=== PATIENT | male | born 1955 | race Caucasian/White ===

== ENCOUNTER → 2016-10-13 | Outpatient (CLI) | payer BC ==
[~2016-10-13] MED LIST: ACET-1256 PO; ASPI81TA21 PO; CLON0.5T3 PO; DIPH-437 PO; FURO40TA3 PO; INSU70IN2 SC; LISI-729 PO; MCRK20 PO; METO1TAB71 PO; PRAV20TA PO; PXL20 PO; WARF-246 PO
[2016-10-13 10:15] LABS: HEMATOCRIT 45.6 % (42-52); MEAN CELL VOLUME 87.7 fL (80-100); MEAN CORPUSCULAR HEMOGLOBIN 30.2 pg (25-34); MEAN CORPUSCULAR HGB CONC 34.4 g/dl (32-36); MEAN PLATELET VOLUME 12.4 fL (7.4-10.4); PLATELET COUNT 110 K/uL (130-400); WHITE BLOOD COUNT 6.35 K/uL (4.8-10.8)
[2016-10-13 10:16] LABS: ALT/SGPT 25 U/L (12-78); BLOOD UREA NITROGEN 15 mg/dl (7-18); BUN/CREATININE RATIO 13.6 (10-20); CALCIUM 9.2 mg/dl (8.5-10.1); CARBON DIOXIDE 30 mmol/L (21-32); CHLORIDE 104 mmol/L (98-107); CHOLESTEROL 91 mg/dl (0-200); GLUCOSE 101 mg/dl (70-99); POTASSIUM 4.2 mmol/L (3.5-5.1); SODIUM 141 mmol/L (136-145); TRIGLYCERIDES 151 mg/dl (0-150); VERY LOW DENSITY LIPOPROT CALC 30 mg/dl
[2016-10-13 10:18] LABS: ALKALINE PHOSPHATASE 135 U/L (45-117); AST/SGOT 22 U/L (15-37); CHOLESTEROL/HDL RATIO 2.3; HDL CHOLESTEROL 39 mg/dl; LDL CHOLESTEROL CALCULATED 22 mg/dl
[2016-10-13 10:23] LABS: BASO % 0.2 %; BASO ABS # 0.01 K/uL (0-0.2); COMPLETE YES; EOS % 3.3 %; IG% 0.2 %; LARGE PLATELETS 1+; LYMPH % 30.2 %; LYMPH ABS # 1.92 K/uL (1.2-3.4); MONO % 13.4 %; NEUT % 52.7 %
[2016-10-13 10:27] LABS: ESTIMATED AVERAGE GLUCOSE 160 mg/dl; HA1C FLAG Normal (Normal)
== END | disposition home or self-care (01) ==
LOC: C.LAB1850 08:38
PROVIDERS: ATTEND Internal Medicine
DX: E11.9 Type 2 diabetes mellitus without complications (principal); I10 Essential (primary) hypertension; I25.5 Ischemic cardiomyopathy; I50.22 Chronic systolic (congestive) heart failure; I25.119 Atherosclerotic heart disease of native coronary artery with unspecified angina pectoris

== ENCOUNTER → 2016-10-23 | Outpatient (CLI) | payer BC ==
--- NOTE | 2016-10-23 16:31 | DIAGNOSTIC IMAGING REPORT ---
CHEST 2 VIEWS ROUTINE CLINICAL HISTORY: I25.5 I20.9 I25.10 I50.23 ANGINA. COMPARISON STUDY: 01/21/2016 FINDINGS: The heart is enlarged. There is a right subclavian pacer/defibrillator present. There is mild pulmonary venous hypertension. There is no lobar consolidation. There are no pleural effusions.[ IMPRESSION: Cardiomegaly and mild pulmonary venous hypertension. No evidence of focal pulmonary consolidation Electronically signed by: Esau Robles M.D. 10/23/2016 4:30 PM Dictated Date/Time: 10/23/2016 4:29 PM
[2016-10-23 18:09] LABS: BLOOD UREA NITROGEN 15 mg/dl (7-18); BUN/CREATININE RATIO 15.9 (10-20); CALCIUM 9.1 mg/dl (8.5-10.1); CARBON DIOXIDE 29 mmol/L (21-32); CHLORIDE 103 mmol/L (98-107); CREATININE 0.96 mg/dl (0.60-1.40); GLUCOSE 117 mg/dl (70-99); MAGNESIUM 1.8 mg/dl (1.8-2.4); POTASSIUM 4.2 mmol/L (3.5-5.1); SODIUM 138 mmol/L (136-145)
== END | disposition home or self-care (01) ==
LOC: C.RAD1850 15:55
PROVIDERS: ATTEND Internal Medicine Cardiovascular Disease
DX: I25.5 Ischemic cardiomyopathy (principal); I50.23 Acute on chronic systolic (congestive) heart failure; I25.119 Atherosclerotic heart disease of native coronary artery with unspecified angina pectoris; I51.7 Cardiomegaly

== ENCOUNTER → 2016-10-26 | Outpatient (CLI) | payer BC ==
[2016-10-26 11:42] LABS: BLOOD UREA NITROGEN 16 mg/dl (7-18); BUN/CREATININE RATIO 13.2 (10-20); CALCIUM 8.6 mg/dl (8.5-10.1); CARBON DIOXIDE 29 mmol/L (21-32); CHLORIDE 103 mmol/L (98-107); GLUCOSE 133 mg/dl (70-99); SODIUM 140 mmol/L (136-145)
== END | disposition home or self-care (01) ==
LOC: C.LAB1850 09:43
PROVIDERS: ATTEND Internal Medicine Cardiovascular Disease
DX: I50.23 Acute on chronic systolic (congestive) heart failure (principal)

== ENCOUNTER → 2016-11-17 | Outpatient (CLI) | payer BC ==
[2016-11-17 16:58] LABS: BLOOD UREA NITROGEN 26 mg/dl (7-18); BUN/CREATININE RATIO 19.6 (10-20); CARBON DIOXIDE 33 mmol/L (21-32); CHLORIDE 103 mmol/L (98-107); GLUCOSE 178 mg/dl (70-99); POTASSIUM 4.1 mmol/L (3.5-5.1); SODIUM 141 mmol/L (136-145)
== END | disposition home or self-care (01) ==
LOC: C.LAB1850 15:18
PROVIDERS: ATTEND Physician Assistant
DX: I50.22 Chronic systolic (congestive) heart failure (principal)

== ENCOUNTER → 2017-03-29 | Outpatient (CLI) | payer BC ==
[2017-03-29 10:24] LABS: HEMATOCRIT 44.2 % (42-52); MEAN CELL VOLUME 93.1 fL (80-100); MEAN CORPUSCULAR HEMOGLOBIN 30.7 pg (25-34); MEAN PLATELET VOLUME 12.2 fL (7.4-10.4); PLATELET COUNT 90 K/uL (130-400); RED BLOOD COUNT 4.75 M/uL (4.7-6.1)
[2017-03-29 10:31] LABS: PLT ESTIMATE DECREASED
[2017-03-29 10:36] LABS: AST/SGOT 15 U/L (15-37); BLOOD UREA NITROGEN 22 mg/dl (7-18); BUN/CREATININE RATIO 16.8 (10-20); CALCIUM 9.3 mg/dl (8.5-10.1); CARBON DIOXIDE 34 mmol/L (21-32); CHLORIDE 105 mmol/L (98-107); GLUCOSE 98 mg/dl (70-99); POTASSIUM 4.7 mmol/L (3.5-5.1); SODIUM 141 mmol/L (136-145)
[2017-03-29 10:38] LABS: ALT/SGPT 20 U/L (12-78)
== END | disposition home or self-care (01) ==
LOC: C.LAB1850 09:13
PROVIDERS: ATTEND Physician Assistant
DX: E78.5 Hyperlipidemia, unspecified (principal); I10 Essential (primary) hypertension; Z51.81 Encounter for therapeutic drug level monitoring; Z79.01 Long term (current) use of anticoagulants

== ENCOUNTER → 2017-06-06 | Outpatient (CLI) | payer BC ==
[2017-06-06 10:42] LABS: BLOOD UREA NITROGEN 21 mg/dl (7-18); BUN/CREATININE RATIO 16.5 (10-20); CARBON DIOXIDE 29 mmol/L (21-32); CHLORIDE 105 mmol/L (98-107); GLUCOSE 105 mg/dl (70-99); POTASSIUM 4.4 mmol/L (3.5-5.1); SODIUM 139 mmol/L (136-145)
[2017-06-06 10:45] LABS: CHOLESTEROL 97 mg/dl (0-200); CHOLESTEROL/HDL RATIO 2.3; HDL CHOLESTEROL 43 mg/dl; LDL CHOLESTEROL CALCULATED 33 mg/dl; TRIGLYCERIDES 103 mg/dl (0-150); VERY LOW DENSITY LIPOPROT CALC 21 mg/dl
[2017-06-06 10:59] LABS: ESTIMATED AVERAGE GLUCOSE 154 mg/dl; HA1C FLAG Normal (Normal)
== END | disposition home or self-care (01) ==
LOC: C.LAB1850 09:26
PROVIDERS: ATTEND Internal Medicine
DX: E11.9 Type 2 diabetes mellitus without complications (principal)

== ENCOUNTER → 2017-09-21 | Outpatient (CLI) | payer BC ==
[~2017-09-21] MED LIST changes: -METO1TAB71 PO; +METO200T32 PO
[2017-09-21 12:19] LABS: BLOOD UREA NITROGEN 36 mg/dl (7-18); CALCIUM 9.4 mg/dl (8.5-10.1); CARBON DIOXIDE 30 mmol/L (21-32); CREATININE 1.51 mg/dl (0.60-1.40); GLUCOSE 170 mg/dl (70-99); POTASSIUM 4.5 mmol/L (3.5-5.1); SODIUM 135 mmol/L (136-145)
== END | disposition home or self-care (01) ==
LOC: C.LAB1850 11:00
PROVIDERS: ATTEND Physician Assistant
DX: I50.23 Acute on chronic systolic (congestive) heart failure (principal)

== ENCOUNTER → 2017-10-05 | Outpatient (CLI) | payer BC ==
[2017-10-05 12:29] LABS: BLOOD UREA NITROGEN 23 mg/dl (7-18); CALCIUM 8.8 mg/dl (8.5-10.1); CARBON DIOXIDE 33 mmol/L (21-32); CREATININE 1.43 mg/dl (0.60-1.40); GLUCOSE 225 mg/dl (70-99); POTASSIUM 4.6 mmol/L (3.5-5.1); SODIUM 138 mmol/L (136-145)
== END | disposition home or self-care (01) ==
LOC: C.LAB1850 10:50
PROVIDERS: ATTEND Physician Assistant
DX: I50.23 Acute on chronic systolic (congestive) heart failure (principal)

== ENCOUNTER → 2017-10-26 | Outpatient (CLI) | payer BC ==
[2017-10-26 15:06] LABS: BLOOD UREA NITROGEN 23 mg/dl (7-18); CALCIUM 8.8 mg/dl (8.5-10.1); CARBON DIOXIDE 32 mmol/L (21-32); CREATININE 1.61 mg/dl (0.60-1.40); GLUCOSE 147 mg/dl (70-99); POTASSIUM 4.4 mmol/L (3.5-5.1); SODIUM 138 mmol/L (136-145)
== END | disposition home or self-care (01) ==
LOC: C.LAB1850 13:48
PROVIDERS: ATTEND Physician Assistant
DX: I50.22 Chronic systolic (congestive) heart failure (principal)

== ENCOUNTER → 2018-03-18 | Outpatient (CLI) | payer OTHER ==
[~2018-03-18] MED LIST changes: +ASPI-319 PO; -ASPI81TA21 PO; -CLON0.5T3 PO; +KLN/5 PO
[2018-03-18 15:14] LABS: INR > 10.0 (0.9-1.1)
== END | disposition home or self-care (01) ==
LOC: C.LAB1850 14:16
PROVIDERS: ATTEND Internal Medicine Cardiovascular Disease
DX: I48.2 Chronic atrial fibrillation (principal)

== ENCOUNTER 2022-05-09 16:14 | Inpatient (IN) ==
[2022-05-09] MEDS ORDERED: SODIUM CHLORIDE 0.9% 1000ML 1,000 ML IV SCH (18:00)
--- NOTE | 2022-05-09 18:17 | XRay Report ---
XR chest 1V portable CLINICAL HISTORY: weakness COMPARISON STUDY: Chest radiograph January 29, 2019. FINDINGS: A right subclavian pacer/AICD remains in place. There are median sternotomy wires. Cardiome johnson is unchanged. No evidence for pulmonary edema. No pneumothorax or pleural effusion. There is no consolidation. IMPRESSION: No acute cardiopulmonary findings. Cardiomegaly. ACT 112: Negative or not required by law. Electronically signed by: Braden Peña M.D. 05/09/2022 6:15 PM
[2022-05-09 18:29] LABS: Basophils # (auto) 0.03 K/uL (0-0.2); Basophils % (auto) 0.2 %; Hemoglobin 17.2 g/dl (14.0-18.0); Immature Granulocytes # (auto) 0.09 K/uL (0.00-0.02); Immature Granulocytes % (auto) 0.6 %; Lymphocytes # (auto) 0.73 K/uL (1.2-3.4); Lymphocytes % (auto) 5.1 %; Mean Corpuscular Hemoglobin 31.1 pg (25.0-34.0); Mean Corpuscular Hgb Conc 34.4 g/dL (32.0-36.0); Mean Corpuscular Volume 90.4 fL (80.0-100.0); Monocytes # (auto) 0.93 K/uL (0.24-0.82); Monocytes % (auto) 6.5 %; Neutrophils # (auto) 12.57 K/uL (1.4-6.5); Neutrophils % (auto) 87.6 %; Platelet Count 113 K/uL (130-400); RDW Coefficient of Variation 13.6 % (11.5-14.5); RDW Standard Deviation 45.1 fL (36.4-46.3); Red Blood Count 5.53 M/uL (4.63-6.08); White Blood Count 14.35 K/ul (4.8-10.8)
[2022-05-09 18:40] LABS: Albumin Globulin Ratio 1.1 (0.9-2); BUN Creatinine Ratio 44.3 (10-20); Bilirubin,Total 1.8 mg/dl (0.2-1.0); Calcium 10.1 mg/dl (8.5-10.1); Creatinine Clr Calc Pharmacy 38.4 ml/min; Est GFR (African American) 33.1 ml/min; Est GFR (Non-African American) 28.5 ml/min; Globulin 3.8 gm/dl (2.5-4.0); Magnesium 2.4 mg/dl (1.7-2.4); Potassium 5.8 mmol/L (3.5-5.1); Total Protein 7.8 gm/dl (6.0-8.3)
[2022-05-09 18:51] LABS: Troponin I High Sensitivity 74.1 pg/ml (0-20)
[2022-05-09] MEDS ORDERED: NovoLIN-R INSULIN PER UNIT CHARGE IV STA (18:54)
--- NOTE | 2022-05-09 19:01 | CT Scan Report ---
CT OF THE HEAD WITHOUT CONTRAST CLINICAL HISTORY: Weakness, frequent falls COMPARISON STUDY: MRI of the brain November 06, 2012. Head CT October 30, 2012. CT DOSE: 994.86 mGycm TECHNIQUE: Helical axial images of the head were obtained without IV contrast. Automated exposure con trol was utilized for the study. A dose lowering technique was utilized adhering to the principles o f ALARA. FINDINGS: No acute intracranial hemorrhage, midline shift or mass effect is present. Extensive white matter hypodensities likely reflect small vessel disease. The ventricular system is unremarkable. The basal cisterns are patent. No extra-axial collections are present. There are no findings to suggest acute dural sinus thrombosis or acute territorial infarct. No significant calvarial abnormalities are present. Visualized portions of the sinuses and mastoid air cells are clear. IMPRESSION: 1. No acute intracranial findings. 2. No acute calvarial fracture. ACT 112: Negative or not required by law. Electronically signed by: Braden Peña M.D. 05/09/2022 6:58 PM
--- NOTE | 2022-05-09 19:25 | CT Scan Report ---
MAXILLOFACIAL CT WITHOUT CONTRAST CLINICAL HISTORY: Trauma. COMPARISON STUDY: Head CT October 30, 2012. TECHNIQUE: A maxillofacial CT was performed without IV contrast. Coronal and sagittal reformats were viewed. Automated exposure control was utilized for the study. A dose lowering technique was utiliz ed adhering to the principles of ALARA. FINDINGS: Suspected contusion of the chin is noted. No acute mandibular fracture is noted. Alignment of the temporomandibular joints is anatomic. Multiple teeth are absent. No acute facial fracture is i dentified. Globes are intact. There is no retrobulbar hematoma. No skull base fracture is present. IMPRESSION: 1. No acute facial fracture. 2. Left inferior facial/chin contusion. ACT 112: Negative or not required by law. Electronically signed by: Braden Peña M.D. 05/09/2022 7:22 PM
--- NOTE | 2022-05-09 20:14 | History & Physical Report ---
Date of Service May 09, 2022 Assessment & Plan (1) Acute on chronic kidney failure: Plan: - Cr 2.30, BUN 102, hard to say what his baseline Cr function is. It was 1.27 at the beginning of the year, prior labs are > 1 year old, was 1.4-2.0 then. - Will provide gentle IVF in addition to what he received in the ED, hold nephrotoxic agents--lisinopril, Lasix--however may need to restart Lasix if he appears volume overload. - BMP in AM. (2) Hyponatremia: Plan: - Na 126, corrects to 131 when accounting for hyperglycemia. - Serum osm high at 337, urine osm 577, urine Na 18. - Suspect mostly hypertonic hyponatremia due to hyperglycemia, however is still midly low even when accounting for this. - Probably has a degree of hyponatremia as he has struggled to eat and drink due to jaw pain. - Will provide gentle IVF given hyponatremia and ANCELMO, but have to be cautious given low EF. - Holding several meds which may be causing low sodium--tramadol, clonazepam. Will try to hold diuretic temporarily as well for this as well as ANCELMO but might have to continue it and except some hit to kidneys to avoid volume overload. - BMP in AM. (3) Leukocytosis: Plan: - WBC 14, procal 0.72, CRP 28, No obvious source of infection yet. - Patient is complaining of jaw pain after a fall one month ago. He saw his d josue a few days ago who referred him to a maxillofacial surgeon. - CXR without evidence of pneumonia, UA without infection. Face CT shows contusion without fractures, hematomas, sinus infection. - Steroids finished one week ago. - For now will cover with Unasyn. - Echo in AM to r/o endocarditis. - CT A/P without contrast ordered. (4) Hyperkalemia: Plan: - 5.8, likely will resolve after receiving insulin for sugar, fluids for DIXON. - Hold lisinopril and KCl supplement. - EKG without peaked T waves, but with evidence of T ave inversions in lateral leads. - BMP this evening and in AM. (5) Elevated troponin: Plan: - hs trop elevated at 75, repeat 68.2. Patient without angina or anginal equivalent symptoms, EKG does have some T wave inversions in lateral leads. - Trend trop overnight, echo in AM, new EKG daily and with angina/equivalent symptoms. (6) Hyperglycemia: Plan: - 408, despite taking insulin today. He was on steroid taper for knee pain but this was finished a week ago. - 10 units insulin in ED. - Pharm consulted for glycemic management. (7) Frequent falls: Plan: - Can be multifactorial due to multiple meds hat may contribute--clonazepam, tramadol. HE is also mildly hyponatremic. - Fluids to correct ANCELMO, hyponatremia, holding above meds. - Daily orthostatic VS and have PT/OT see and evaluate patient. (8) Permanent atrial fibrillation: Plan: - Permanent, asymptomatic, remains rate controlled with carvedilol. - Continue Eliquis. Chronically thrombocytic, no acute bleeding issues. (9) Ischemic cardiomyopathy: Plan: - Has AICD. - Echo 04/10/22: EF 35-40%, mild global hypokinesis and mild LVH. - Continue carvedilol, hold lisinopril for now (ANCELMO, hyper K). (10) Chronic systolic congestive heart failure: Plan: - Holding Lasix for ANCELMO but would restart if he's becoming overloaded with IVF running for ANCELMO. - Continue carvedilol. - Low sodium/DM diet. - Strict I/Os. - Fluids capped at 1L - Daily weights. (11) Diabetes mellitus: Plan: - Glucose 408 today despite taking his insulin this AM. Given 10 units of i nsulin in ED. - Hold NPH, SSI for now with Accucheks ACHS. - A1c in AM. - Diabetic consult for conversion from NPH to Lantus. (12) Depression: Plan: - Could consider holding paroxetine for tomorrow given it can potentially contribute to hyponatremia but NA only slightly loq (131 corrected for glucose 400s), more likely low sodium is due to poor po intake. - Holding Clonazepam if able, patient has been on this qHS for awhile, do not want to cause withdrawal but may be contributing to falls. (13) Thrombocytopenia: Plan: - Chronic, PLTs 113 today, wnl for him. - No hx of liver disease. - Monitor on daily BMP. Plan - Admit to PCU. - SCDS, Eliquis for afib/VTE ppx. - Full Code. History of Present Illness Chief Complaint: Multiple falls at home for the past month Primary Care Provider: Adrian Silveira MD Kuldeep Craig is a 67-year-old male with past medical history significant for CAD s/p CABG, HFrEF, ischemic cardiomyopathy s/p AICD, permanent A. fib, DM2 on insulin, hypertension, dyslipidemia, thrombocytopenia, depression who presents today with ongoing falls at home. He has been falling multiple times a day for a month, mostly because he has been tripping or not paying attention when he was walking. Several falls have resulted from him getting up and immediately feeling dizzy and falling, however denies LOC or hitting his head. Denies chest pain, sob, or palpitations preceding falls. On a fall one motnh ago, he fell into his washing machine and hit his face on it. It has continue to be painful and is worsening. He went to his dentist several days ago due to jaw pain who suggested he see a maxillofacial surgeon. He is not eating or drinking much because it hurts his jaw, but is not having difficulty swallowing. No other complaints, denies abdominal pain, n/v/d, urinary symptoms. No current or recent chest pain, dyspnea, orthopnea. He was recently on steroids for a knee injury sustained in a fall but has been off of them for a week now. Has been compliant with all home medications, including insulin which he took this morning. Upon presentation to the ED, his vital signs are within normal limits and they are stable. He is in A. fib with HR in 90s. Labs significant for sodium of 126, potassium 5.8, chloride 90. BUN significantly increased to 102, creatinine 2.30, glucose 408, troponin 74.1. Also notable is a WBC of 14.35, this is in the setting of methylprednisolone use. Platelets low at 113, however this is h is baseline. T bili elevated 1.8, however has been elevated to this extent for several years. His UA is pending. He is COVID-negative. CXR reveals cardiomegaly without pulmonary edema noted. Head CT without any acute findings. Face CT shows a left inferior facial/chin contusion, but no facial fractures. Allergies Allergy/AdvReac Type Severity Reaction Status Date / Time diphenhydramine AdvReac Unknown hallucinati Verified 05/09/22 20:11 on Home Medications Medication Instructions Recorded Confirmed Type acetaminophen 500 mg tablet 500 mg PO Q6H PRN Pain 11/21/18 05/09/22 History (Tylenol Extra Strength) blood sugar diagnostic (OneTouch #200 ea 01/10/21 05/09/22 Rx Verio test strips) lancets 33 gauge (OneTouch Delica #200 ea 01/10/21 05/09/22 Rx Lancets) nitroglycerin 0.4 mg sublingual 0.4 mg sublingual Q5M PRN chest 06/24/21 05/09/22 Rx tablet (Nitrostat) pain #25 tabs apixaban 5 mg tablet (Eliquis) 5 mg PO BID #180 tabs 08/31/21 05/09/22 Rx carvedilol 25 mg tablet 25 mg PO BID #180 tabs 09/12/21 05/09/22 Rx isosorbide mononitrate 120 mg 120 mg PO QAM #90 tabs 09/29/21 05/09/22 Rx tablet,extended release 24 hr insulin human U-100 NPH-regulr See Rx Instructions subcut BIDM 12/22/21 05/09/22 Rx 70-30 mix 100 unit/mL subcutaneous #50 mL susp (Humulin 70/30 U-100 Insulin) atorvastatin 80 mg tablet 80 mg PO HS #90 tabs 12/26/21 05/09/22 Rx furosemide 40 mg tablet (Lasix) 40 mg PO BID #190 tabs 01/20/22 05/09/22 Rx clonazepam 0.5 mg tablet 0.5 mg PO DAILY #30 tabs 02/09/22 05/09/22 Rx paroxetine HCl 10 mg tablet 10 mg PO QAM #90 tabs 03/08/22 05/09/22 Rx lisinopril 40 mg tablet 40 mg PO QAM #90 tabs 03/29/22 05/09/22 Rx potassium chloride 20 mEq 20 meq PO BID #180 tabs 03/29/22 05/09/22 Rx tablet,extended release(part/cryst) (Klor-Con M) insulin syringe-needle U-100 0.5 #100 ea 04/07/22 05/09/22 Rx mL 31 gauge x 5/16" (BD Insulin Syringe Ultra-Fine) ranolazine 1,000 mg 1,000 mg PO BID #90 tabs 04/10/22 05/09/22 Rx tablet,extended release,12 hr tramadol 50 mg tablet 50 mg PO Q8H PRN pain #30 tabs 04/19/22 05/09/22 Rx methylprednisolone 4 mg tablets in See Rx Instructions .Route 05/03/22 05/09/22 Rx a dose pack (Medrol (Paul)) .COMPLEX #21 ea Past Med/Surg History Medical History (Updated 05/09/22 @ 21:51 by Luz Neely PA-C) Anticoagulant long-term use CAD in [place] artery CHF (congestive heart failure) Chronic systolic congestive heart failure Depression Diabetes mellitus (10/30/12) Dyslipidemia Hypertension Ischemic cardiomyopathy Permanent atrial fibrillation Pneumonia Thrombocytopenia Surgical History Hx of CABG S/P implantation of automatic cardioverter/defibrillator (AICD) Family History Father Patient's father is Father FH: CABG (coronary artery bypass surgery) CABG Myocardial infarction Sister COPD (chronic obstructive pulmonary disease) Denies family history of Ovarian cancer Prostate cancer Breast cancer Colorectal cancer Stroke Social History Smoking Status: Never smoker Second Hand Exposure: No; Hx Alcohol Use: Yes Hx Substance Use: No Preferred Language: Macedonian Communication Ability: Effective Visual Impairment: No Limitations Hearing Ability: Normal Cloud Engagement Partner Required: No Beliefs That Will Affect Care: None marital status: Single Current Living Situation: Family Current Living Situation Comment: Lives with daughter current occupational status: retired Other Information That Helps Us Care for You: No Feels Safe at Home: Yes Safety Concerns: Feels Safe At This Time Childhood Exposure to Second-Hand Smoke: Yes (everyone) Dental Care, Regularly: No Physical Activity Frequency: Does not Exercise Seatbelt Use: always Sunscreen Use: No Assistive Devices: Cane Review of Systems Review of Systems: Constitutional: No fever/chills, weakness, fatigue, myalgias, anorexia, night sweats Eyes: No diplopia, no worsening or blurred vision ENT: jaw pain ongoing x1 month since fall; normal hearing, no trouble swallowing Respiratory: No cough, sputum, dyspnea at rest or on exertion Cardiovascular: No chest pain, tightness or palpitations Abdomen: No pain, nausea, vomiting, diarrhea or constipation : Denies dysuria, hematuria, increased urgency/frequency, urinary retention Musculoskeletal: No joint pain, calf pain, swelling Neurologic: No weakness, numbness/tingling, or balance problems Psychiatric: No anxiety or depression Skin: No rash or itch Physical Exam Physical Exam: General: awake, alert, no apparent distress Head: Normocephalic, atraumatic ENT: some mandibular swelling without open wound or marked erythema, edema; PERRL, EOMI, no pharyngeal exudate, mucous membranes moist Chest: Clear to auscultation, on room air, no adventitious breath sounds Cardiac: irregular rhythm consistent with afib, normal rate; no murmur, no JVD, normal peripheral pulses, good capillary refill Abdominal: NABS x 4 quadrants, soft, nontender to palpation, no rebound, guarding or tenderness Extremities: Normal inspection, no peripheral edema or erythema, calfs nontender to palpation Psych: Normal mood and affect Neuro: AAO x 3, strength intact bilaterally and rated 5/5, no motor deficits, speech is clear, no peripheral sensory deficits Skin: no rash or erythema Results & Data Results & Data ([facility]) Vital Signs (Past 12 Hours) Vital Signs Temp Pulse Pulse Resp BP BP Pulse Ox 05/09/22 18:00 98 H 20 128/78 99 05/09/22 17:55 95 05/09/22 16:24 97 05/09/22 16:24 36.5 C 81 19 102/63 97 O2 Del Method 05/09/22 18:00 05/09/22 17:55 Room Air 05/09/22 16:24 Room Air 05/09/22 16:24 Room Air Laboratory Results Abnormal lab results 05/09/22 05/09/22 05/09/22 Range/Units 16:18 16:18 16:18 WBC 14.35 H (4.8-10.8) K/ul Plt Count 113 L (130-400) K/uL Neut # (Auto) 12.57 H (1.4-6.5) K/uL Lymph # (Auto) 0.73 L (1.2-3.4) K/uL [place] # (Auto) 0.93 H (0.24-0.82) K/uL Immature Gran # (Auto) 0.09 H (0.00-0.02) K/uL Sodium 126 L (136-145) mmol/L Potassium 5.8 H (3.5-5.1) mmol/L Chloride 90 L (98-107) mmol/L Anion Gap 13 H (3-11) BUN 102 H (6-23) mg/dl Creatinine 2.30 H (0.6-1.4) mg/dl BUN/Creatinine Ratio 44.3 H (10-20) Glucose 408 H* (70-99(Fasting)) mg/dl Osmolality 327 H (280-300) mOsm/kg Total Bilirubin 1.8 H (0.2-1.0) mg/dl Alkaline Phosphatase 105 H (34-104) U/L Troponin I High Sens 74.1 H* (0-20) pg/ml Urine Glucose (UA) (Negative) 05/09/22 Range/Units 20:07 WBC (4.8-10.8) K/ul Plt Count (130-400) K/uL Neut # (Auto) (1.4-6.5) K/uL Lymph # (Auto) (1.2-3.4) K/uL [place] # (Auto) (0.24-0.82) K/uL Immature Gran # (Auto) (0.00-0.02) K/uL Sodium (136-145) mmol/L Potassium (3.5-5.1) mmol/L Chloride (98-107) mmol/L Anion Gap (3-11) BUN (6-23) mg/dl Creatinine (0.6-1.4) mg/dl BUN/Creatinine Ratio (10-20) Glucose (70-99(Fasting)) mg/dl Osmolality (280-300) mOsm/kg Total Bilirubin (0.2-1.0) mg/dl Alkaline Phosphatase (34-104) U/L Troponin I High Sens (0-20) pg/ml Urine Glucose (UA) 3+ H (Negative) Diagnostic Findings Laboratory Results WBC 14.35 K/ul (4.8-10.8) H 05/09/22 16:18 RBC 5.53 M/uL (4.63-6.08) 05/09/22 16:18 Hgb 17.2 g/dl (14.0-18.0) 05/09/22 16:18 Hct 50.0 % (40.1-51.0) 05/09/22 16:18 MCV 90.4 fL (80.0-100.0) 05/09/22 16:18 MCH 31.1 pg (25.0-34.0) 05/09/22 16:18 MCHC 34.4 g/dL (32.0-36.0) 05/09/22 16:18 RDW Std Deviation 45.1 fL (36.4-46.3) 05/09/22 16:18 RDW Coeff of Raman 13.6 % (11.5-14.5) 05/09/22 16:18 Plt Count 113 K/uL (130-400) L 05/09/22 16:18 MPV 12.0 fL (9.4-12.4) 05/09/22 16:18 Immature Gran % (Auto) 0.6 % 05/09/22 16:18 Neut % (Auto) 87.6 % 05/09/22 16:18 Lymph % (Auto) 5.1 % 05/09/22 16:18 [place] % (Auto) 6.5 % 05/09/22 16:18 Eos % (Auto) 0.0 % 05/09/22 16:18 Baso % (Auto) 0.2 % 05/09/22 16:18 Neut # (Auto) 12.57 K/uL (1.4-6.5) H 05/09/22 16:18 Lymph # (Auto) 0.73 K/uL (1.2-3.4) L 05/09/22 16:18 [place] # (Auto) 0.93 K/uL (0.24-0.82) H 05/09/22 16:18 Eos # (Auto) 0.00 K/uL (0-0.50) 05/09/22 16:18 Baso # (Auto) 0.03 K/uL (0-0.2) 05/09/22 16:18 Immature Gran # (Auto) 0.09 K/uL (0.00-0.02) H 05/09/22 16:18 Sodium 126 mmol/L (136-145) L 05/09/22 16:18 Potassium 5.8 mmol/L (3.5-5.1) H 05/09/22 16:18 Chloride 90 mmol/L (98-107) L 05/09/22 16:18 Carbon Dioxide 23 mmol/L (21-32) 05/09/22 16:18 Anion Gap 13 (3-11) H 05/09/22 16:18 BUN 102 mg/dl (6-23) H 05/09/22 16:18 Creatinine 2.30 mg/dl (0.6-1.4) H 05/09/22 16:18 Est Cr Clr Drug Dosing 38.4 ml/min 05/09/22 16:18 Est GFR ( Amer) 33.1 ml/min 05/09/22 16:18 Est GFR (Non-Af Amer) 28.5 ml/min 05/09/22 16:18 BUN/Creatinine Ratio 44.3 (10-20) H 05/09/22 16:18 Glucose 408 mg/dl (70-99(Fasting)) H* 05/09/22 16:18 Osmolality 327 mOsm/kg (280-300) H 05/09/22 16:18 Calcium 10.1 mg/dl (8.5-10.1) 05/09/22 16:18 Magnesium 2.4 mg/dl (1.7-2.4) 05/09/22 16:18 Total Bilirubin 1.8 mg/dl (0.2-1.0) H 05/09/22 16:18 AST 15 U/L (13-39) 05/09/22 16:18 ALT 12 U/L (7-52) 05/09/22 16:18 Alkaline Phosphatase 105 U/L (34-104) H 05/09/22 16:18 Troponin I High Sens 74.1 pg/ml (0-20) H* 05/09/22 16:18 Total Protein 7.8 gm/dl (6.0-8.3) 05/09/22 16:18 Albumin 4.0 gm/dl (3.4-5.0) 05/09/22 16:18 Globulin 3.8 gm/dl (2.5-4.0) 05/09/22 16:18 Albumin/Globulin Ratio 1.1 (0.9-2) 05/09/22 16:18 TSH 0.378 uIu/ml (0.300-4.500) 05/09/22 16:18 Urine Color Yellow 05/09/22 20:07 Urine Appearance Clear (Clear) 05/09/22 20:07 Urine pH 5.0 (4.5-7.5) 05/09/22 20:07 Ur Specific [place] 1.022 (1.000-1.030) 05/09/22 20:07 Urine Protein Negative (Negative) 05/09/22 20:07 Urine Glucose (UA) 3+ (Negative) H 05/09/22 20:07 Urine Ketones Negative (Negative) 05/09/22 20:07 Urine Blood Negative (Negative) 05/09/22 20:07 Urine Nitrite Negative (Negative) 05/09/22 20:07 Urine Bilirubin Negative (Negative) 05/09/22 20:07 Urine Urobilinogen Negative (Negative) 05/09/22 20:07 Ur Leukocyte Esterase Negative (Negative) 05/09/22 20:07 Ur Random Sodium 18 mmol/L 05/09/22 20:07 SARS-CoV-2, RNA, NAAT NEGATIVE (NEGATIVE) 05/09/22 18:19 Impressions Chest X-Ray 05/09/22 17:55 XR chest 1V portable CLINICAL HISTORY: weakness COMPARISON STUDY: Chest radiograph January 29, 2019. FINDINGS: A right subclavian pacer/AICD remains in place. There are median sternotomy wires. Cardiomegaly is unchanged. No evidence for pulmonary edema. No pneumothorax or pleural effusion. There is no consolidation. IMPRESSION: No acute cardiopulmonary findings. Cardiomegaly. ACT 112: Negative or not required by law. Electronically signed by: Braden Peña M.D. 05/09/2022 6:[address] 05/09/22 17:55 CT OF THE HEAD WITHOUT CONTRAST CLINICAL HISTORY: Weakness, frequent falls COMPARISON STUDY: MRI of the brain November 06, 2012. Head CT October 30, 2012. CT DOSE: 994.86 mGycm TECHNIQUE: Helical axial images of the head were obtained without IV contrast. Automated exposure control was utilized for the study. A dose lowering technique was utilized adhering to the principles of ALARA. FINDINGS: No acute intracranial hemorrhage, midline shift or mass effect is present. Extensive white matter hypodensities likely reflect small vessel disease. The ventricular system is unremarkable. The basal cisterns are patent. No extra-axial collections are present. There are no findings to suggest acute dural sinus thrombosis or acute territorial infarct. No significant calvarial abnormalities are present. Visualized portions of the sinuses and mastoid air cells are clear. IMPRESSION: 1. No acute intracranial findings. 2. No acute calvarial fracture. ACT 112: Negative or not required by law. Electronically signed by: Braden Peña M.D. 05/09/2022 6:[address] 05/09/22 18:[address] WITHOUT CONTRAST CLINICAL HISTORY: Trauma. COMPARISON STUDY: Head CT October 30, 2012. TECHNIQUE: A maxillofacial CT was performed without IV contrast. Coronal and sagittal reformats were viewed. Automated exposure control was utilized for the study. A dose lowering technique was utilized adhering to the principles of ALARA. FINDINGS: Suspected contusion of the chin is noted. No acute mandibular fracture is noted. Alignment of the temporomandibular joints is anatomic. Multiple teeth are absent. No acute facial fracture is identified. Globes are intact. There is no retrobulbar hematoma. No skull base fracture is present. IMPRESSION: 1. No acute facial fracture. 2. Left inferior facial/chin contusion. ACT 112: Negative or not required by law. Electronically signed by: Braden Peña M.D. 05/09/2022 7:22 PM ECG Additional Comments: Atrial flutter with variable A-V block with premature ventricular or aberrantly conducted complexes Non-specific intra-ventricular conduction block Possible Anterolateral infarct (cited on or before 20-JAN-2016) T wave abnormality, consider inferior ischemia Abnormal ECG When compared with ECG of 23-NOV-2018 06:27, Atrial flutter has replaced Atrial fibrillation Questionable change in initial forces of Anterolateral leads T wave inversion now evident in Inferior leads Inverted T waves have replaced nonspecific T wave abnormality in Lateral leads. Code Status & VTE Plan Code Status Full Code. Supervising Physician Co-Signing Physician Notes Attending addendum: I have physically seen this patient, have supervised the DESIRE's activities, and agree with the H&P unless as otherwise noted. Assessment and Plan: NSTEMI/elevated troponin/status post CABG/chronic CHF/CAD/ischemic cardiomyopathy/permanent atrial fibrillation- The patient will be admitted to telemetry for serial cardiac enzymes, serial EKG's, cardiac rhythm monitoring and a 2-D echocardiogram with Dopplers. Troponin has decreased from 74.1-68 while still in the ED continue apixaban, carvedilol, furosemide, nitroglycerin sublingual's as needed, ranolazine and potassium chloride Consult cardiology Hyponatremia/hyperkalemia/acute kidney injury on CKD- Sodium 126, corrects to 131 for hyperglycemia Serum osmolality 337, urine osmolality 577, urine sodium 18 Creatinine 2.30 with base 1.27-2.02 IV fluids as noted Serial BMP and magnesium levels Hyperglycemia in diabetes mellitus- Glucose initially 408, and potassium 5.8, and given 10 units of regular insulin IV with follow-up pending Check hemoglobin A1c No obvious source of infection Remaining orders and notations as noted PG Care Time/CCT Total # of Minutes Spent Total Time Spent with Patient: Total time spent is greater than 50% in coordination of care (as documented) at patient's floor/unit and/or counseling patient: Coding Level of Care Code 51823 Initial Inpt Care Lvl 3 Diagnoses Acute on chronic kidney failure N17.9; N18.9 Hyponatremia E87.1 Leukocytosis D72.829 Hyperkalemia E87.5 Elevated troponin R77.8 Hyperglycemia R73.9 Frequent falls R29.6 Permanent atrial fibrillation I48.2 Ischemic cardiomyopathy I25.5 Chronic systolic congestive heart failure I50.22 Diabetes mellitus E11.9 Depression F32.9 Thrombocytopenia D69.6
[2022-05-09 20:34] LABS: Appearance Urine Clear (Clear); Bilirubin Urine Negative (Negative); Blood Urine Negative (Negative); Color Urine Yellow; Glucose Urine UA 3+ (Negative); Ketones Urine Negative (Negative); Leukocyte Esterase Urine Negative (Negative); Nitrite Urine Negative (Negative); Protein Urine Negative (Negative); Specific Gravity Urine 1.022 (1.000-1.030); Urobilinogen Urine Negative (Negative)
--- NOTE | 2022-05-09 20:36 | Emergency Department Note ---
Impression & Plan Acute kidney injury, Traumatic hematoma of face, Acute hyponatremia, Acute hyperglycemia, Troponin level elevated ED Provider Note CHIEF COMPLAINT: Weakness, frequent falls, jaw pain HISTORY OF PRESENT ILLNESS: This 67-year-old male patient presents to the emergency department with complaints of jaw pain and swelling. The patient states he is not able to eat and drink because of lower mandibular pain. He saw his dentist who stated it was not dental in nature. He was referred to a max llofacial surgeon. The patient did fall 2 more times today but states that the pain in the jaw started prior to that. He is unsure why he falls or frequently COVID states it started with a dizzy episode. Denies any chest discomfort, shortness of breath, nausea or vomiting. He states his blood sugar was elevated upon EMS arrival to his house today. His daughter called the ambulance and wanted him to be seen. REVIEW OF SYSTEMS: A review of systems was performed with positives and pertinent negatives listed in the history of present illness. 10 systems were reviewed and are otherwise negative. ALLERGIES: see below MEDICATIONS: see below PMH: see below SOCIAL HISTORY: see below DDx: Infection, mandibular fracture, trauma, dehydration, metabolic abnormality, hypo/hyperglycemia, electrolyte disturbance, anemia, hypoxia, cardiac sources, intracerebral event, toxicologic, neurologic, as well as other pathologies. PHYSICAL EXAM: Vital signs reviewed. General: Chronically ill-appearing 67-year-old male, in no significant distress. HEENT: No scleral icterus, PERRLA, neck supple. Swelling around the lower maxillary region with hematoma along the gumline appreciated. No instability of the mandible appreciated. Minimal swelling of the submandibular region without significant tenderness or airway compromise. Posterior oropharynx is clear. Cardiovascular: Regular rate and rhythm, no extra sounds. Pulmonary: Clear to auscultation bilaterally, normal work of breathing. Abdomen: Soft, nontender, nondistended, positive bowel sounds. Musculoskeletal: Atraumatic, no peripheral edema. Neurologic: Patient awake alert and oriented x 3 Skin: Warm, dry, no rash EMERGENCY DEPARTMENT COURSE/MDM: Patient was evaluated and appeared to be chronically ill with traumatic changes to the patient's from the mandible. CT imaging was performed and reveals no evidence of acute intracranial abnormality or bony fractures to the face cervical spine. Patient's laboratory work reveals hyponatremia, hyperkalemia, elevated troponin and acute kidney injury. The etiology of this is not readily apparent but patient was hydrated with normal saline solution. EKG reveals rate controlled atrial flutter. Patient was given 10 units of IV regular insulin for markedly elevated blood glucose of 400. Patient's case was discussed with the hospitalist service who will evaluate the patient for admission and further management. The patient and his daughter (by phone) were made aware of the plan and agreed. MONITORING: An order for cardiac monitoring was placed and the patient is noted to be in a normal sinus rhythm at 79 beats per minute. RADIOLOGY: See below EKG: Atrial flutter with variable AV block at 97 bpm. Nonspecific intraventricular conduction block. Possible old anterior lateral infarct. T wave abnormality in the inferior leads. QTc is 480. When compared to previous dated November 23, 2018, atrial fibrillation has been replaced by atrial flutter. DISPOSITION: Admission Past Med/Surg History Medical History Anticoagulant long-term use CAD in [place] artery CHF (congestive heart failure) Chronic systolic congestive heart failure Depression Diabetes mellitus (10/30/12) Dyslipidemia Hypertension Ischemic cardiomyopathy Permanent atrial fibrillation Pneumonia Thrombocytopenia Surgical History History of incision and drainage (05/14/22) Incision and Drainage submental swelling - Sekou Wang, MICHAEL Hx of CABG S/P implantation of automatic cardioverter/defibrillator (AICD) Family History Father Patient's father is Father FH: CABG (coronary artery bypass surgery) CABG Myocardial infarction Sister COPD (chronic obstructive pulmonary disease) Denies family history of Ovarian cancer Prostate cancer Breast cancer Colorectal cancer Stroke Social History Smoking Status: Never smoker Second Hand Exposure: No; Hx Alcohol Use: Yes Hx Substance Use: No Preferred Language: Italian Communication Ability: Effective Visual Impairment: No Limitations Hearing Ability: Normal [employer] Required: No Beliefs That Will Affect Care: None marital status: Single Current Living Situation: Family Current Living Situation Comment: Lives with daughter current occupational status: retired Feels Safe at Home: Yes Childhood Exposure to Second-Hand Smoke: Yes (everyone) Dental Care, Regularly: No Physical Activity Frequency: Does not Exercise Seatbelt Use: always Sunscreen Use: No Assistive Devices: Cane Allergies Allergies Allergy/AdvReac Type Severity Reaction Status Date / Time diphenhydramine AdvReac Unknown hallucinati Verified 05/09/22 20:11 on Home Meds Home Medications Medication Instructions Recorded Confirmed acetaminophen 500 mg tablet 500 mg PO Q6H PRN Pain 11/21/18 05/09/22 (Tylenol Extra Strength) Previous Rx's Medication Instructions Recorded blood sugar diagnostic (OneTouch #200 ea 01/10/21 Verio test strips) lancets 33 gauge (OneTouch Delica #200 ea 01/10/21 Lancets) nitroglycerin 0.4 mg sublingual 0.4 mg sublingual Q5M PRN chest 06/24/21 tablet (Nitrostat) pain #25 tabs carvedilol 25 mg tablet 25 mg PO BID #180 tabs 09/12/21 isosorbide mononitrate 120 mg 120 mg PO QAM #90 tabs 09/29/21 tablet,extended release 24 hr insulin human U-100 NPH-regulr See Rx Instructions subcut BIDM 12/22/21 70-30 mix 100 unit/mL subcutaneous #50 mL susp (Humulin 70/30 U-100 Insulin) atorvastatin 80 mg tablet 80 mg PO HS #90 tabs 12/26/21 paroxetine HCl 10 mg tablet 10 mg PO QAM #90 tabs 03/08/22 insulin syringe-needle U-100 0.5 #100 ea 04/07/22 mL 31 gauge x 5/16" (BD Insulin Syringe Ultra-Fine) ranolazine 1,000 mg 1,000 mg PO BID #90 tabs 04/10/22 tablet,extended release,12 hr amoxicillin 875 mg-potassium 1 tab PO Q12H #20 tabs 05/15/22 clavulanate 125 mg tablet apixaban 5 mg tablet (Eliquis) 5 mg PO BID #180 tabs 05/15/22 hydrocodone 5 mg-acetaminophen 325 1 tab PO Q4H PRN pain #14 tabs 05/15/22 mg tablet Results & Data (ED) Vital Signs Vital Signs - 24 hr 05/09/22 16:24 05/09/22 16:24 05/09/22 17:55 Temperature 36.5 C Temperature Source Oral Pulse Rate 81 Pulse Rate [Apical] Pulse Rhythm Regular Pulse Strength Normal Respiratory Rate 19 Respiratory Effort / Characteristics Non-Labored Spontaneous Respiratory Depth Normal Respiratory Pattern Regular Blood Pressure 102/63 Blood Pressure [Right Arm] Blood Pressure Mean 76 Blood Pressure Mean [Right Arm] Blood Pressure Position [Right Arm] Pulse Oximetry 97 97 95 Oxygen Delivery Method Room Air Room Air Room Air Sepsis Recent Fever Within 48 Hours No Sepsis New/Unexplained Change in Mental Status No Sepsis Action Taken by Nursing No Action Required 05/09/22 18:00 05/09/22 20:00 Temperature Temperature Source Pulse Rate Pulse Rate [Apical] 98 H 97 H Pulse Rhythm Pulse Strength Respiratory Rate 20 20 Respiratory Effort / Characteristics Non-Labored Spontaneous Respiratory Depth Normal Normal Respiratory Pattern Regular Blood Pressure Blood Pressure [Right Arm] 128/78 124/75 Blood Pressure Mean Blood Pressure Mean [Right Arm] 94 91 Blood Pressure Position [Right Arm] Sitting Pulse Oximetry 99 96 Oxygen Delivery Method Room Air Sepsis Recent Fever Within 48 Hours Sepsis New/Unexplained Change in Mental Status Sepsis Action Taken by Snf Medications Current Medication List: was personally reviewed by me Laboratory Data Attestation: I reviewed the patient's lab results. Result diagrams: 05/14/22 06:07 05/15/22 05:54 Lab Results 05/09/22 05/09/22 05/09/22 Range/Units 16:18 16:18 16:18 WBC 14.35 H (4.8-10.8) K/ul RBC 5.53 (4.63-6.08) M/uL Hgb 17.2 (14.0-18.0) g/dl Hct 50.0 (40.1-51.0) % MCV 90.4 (80.0-100.0) fL MCH 31.1 (25.0-34.0) pg MCHC 34.4 (32.0-36.0) g/dL RDW Std Deviation 45.1 (36.4-46.3) fL RDW Coeff of Raman 13.6 (11.5-14.5) % Plt Count 113 L (130-400) K/uL MPV 12.0 (9.4-12.4) fL Immature Gran % (Auto) 0.6 % Neut % (Auto) 87.6 % Lymph % (Auto) 5.1 % [place] % (Auto) 6.5 % Eos % (Auto) 0.0 % Baso % (Auto) 0.2 % Neut # (Auto) 12.57 H (1.4-6.5) K/uL Lymph # (Auto) 0.73 L (1.2-3.4) K/uL [place] # (Auto) 0.93 H (0.24-0.82) K/uL Eos # (Auto) 0.00 (0-0.50) K/uL Baso # (Auto) 0.03 (0-0.2) K/uL Immature Gran # (Auto) 0.09 H (0.00-0.02) K/uL Sodium 126 L (136-145) mmol/L Potassium 5.8 H (3.5-5.1) mmol/L Chloride 90 L (98-107) mmol/L Carbon Dioxide 23 (21-32) mmol/L Anion Gap 13 H (3-11) BUN 102 H (6-23) mg/dl Creatinine 2.30 H (0.6-1.4) mg/dl Est Cr Clr Drug Dosing 38.4 ml/min Est GFR ( Amer) 33.1 ml/min Est GFR (Non-Af Amer) 28.5 ml/min BUN/Creatinine Ratio 44.3 H (10-20) Glucose 408 H* (70-99(Fasting)) mg/dl Osmolality (280-300) mOsm/kg Calcium 10.1 (8.5-10.1) mg/dl Magnesium 2.4 (1.7-2.4) mg/dl Total Bilirubin 1.8 H (0.2-1.0) mg/dl Direct Bilirubin (0-0.2) mg/dl AST 15 (13-39) U/L ALT 12 (7-52) U/L Alkaline Phosphatase 105 H (34-104) U/L Troponin I High Sens 74.1 H* (0-20) pg/ml C-Reactive Protein (0-0.5) mg/dl Total Protein 7.8 (6.0-8.3) gm/dl Albumin 4.0 (3.4-5.0) gm/dl Globulin 3.8 (2.5-4.0) gm/dl Albumin/Globulin Ratio 1.1 (0.9-2) Procalcitonin (0-0.5) ng/ml TSH 0.378 (0.300-4.500) uIu/ml Urine Color Urine Appearance (Clear) Urine pH (4.5-7.5) Ur Specific [place] (1.000-1.030) Urine Protein (Negative) Urine Glucose (UA) (Negative) Urine Ketones (Negative) Urine Blood (Negative) Urine Nitrite (Negative) Urine Bilirubin (Negative) Urine Urobilinogen (Negative) Ur Leukocyte Esterase (Negative) Urine Osmolality (500-800) mOsm/kg Ur Random Sodium mmol/L SARS-CoV-2, RNA, NAAT (NEGATIVE) 05/09/22 05/09/22 05/09/22 Range/Units 16:18 16:18 18:19 WBC (4.8-10.8) K/ul RBC (4.63-6.08) M/uL Hgb (14.0-18.0) g/dl Hct (40.1-51.0) % MCV (80.0-100.0) fL MCH (25.0-34.0) pg MCHC (32.0-36.0) g/dL RDW Std Deviation (36.4-46.3) fL RDW Coeff of Raman (11.5-14.5) % Plt Count (130-400) K/uL MPV (9.4-12.4) fL Immature Gran % (Auto) % Neut % (Auto) % Lymph % (Auto) % [place] % (Auto) % Eos % (Auto) % Baso % (Auto) % Neut # (Auto) (1.4-6.5) K/uL Lymph # (Auto) (1.2-3.4) K/uL [place] # (Auto) (0.24-0.82) K/uL Eos # (Auto) (0-0.50) K/uL Baso # (Auto) (0-0.2) K/uL Immature Gran # (Auto) (0.00-0.02) K/uL Sodium (136-145) mmol/L Potassium (3.5-5.1) mmol/L Chloride (98-107) mmol/L Carbon Dioxide (21-32) mmol/L Anion Gap (3-11) BUN (6-23) mg/dl Creatinine (0.6-1.4) mg/dl Est Cr Clr Drug Dosing ml/min Est GFR ( Amer) ml/min Est GFR (Non-Af Amer) ml/min BUN/Creatinine Ratio (10-20) Glucose (70-99(Fasting)) mg/dl Osmolality 327 H (280-300) mOsm/kg Calcium (8.5-10.1) mg/dl Magnesium (1.7-2.4) mg/dl Total Bilirubin (0.2-1.0) mg/dl Direct Bilirubin (0-0.2) mg/dl AST (13-39) U/L ALT (7-52) U/L Alkaline Phosphatase (34-104) U/L Troponin I High Sens (0-20) pg/ml C-Reactive Protein (0-0.5) mg/dl Total Protein (6.0-8.3) gm/dl Albumin (3.4-5.0) gm/dl Globulin (2.5-4.0) gm/dl Albumin/Globulin Ratio (0.9-2) Procalcitonin 0.72 H (0-0.5) ng/ml TSH (0.300-4.500) uIu/ml Urine Color Urine Appearance (Clear) Urine pH (4.5-7.5) Ur Specific [place] (1.000-1.030) Urine Protein (Negative) Urine Glucose (UA) (Negative) Urine Ketones (Negative) Urine Blood (Negative) Urine Nitrite (Negative) Urine Bilirubin (Negative) Urine Urobilinogen (Negative) Ur Leukocyte Esterase (Negative) Urine Osmolality (500-800) mOsm/kg Ur Random Sodium mmol/L SARS-CoV-2, RNA, NAAT NEGATIVE (NEGATIVE) 05/09/22 05/09/22 05/09/22 Range/Units 20:07 20:07 20:07 WBC (4.8-10.8) K/ul RBC (4.63-6.08) M/uL Hgb (14.0-18.0) g/dl Hct (40.1-51.0) % MCV (80.0-100.0) fL MCH (25.0-34.0) pg MCHC (32.0-36.0) g/dL RDW Std Deviation (36.4-46.3) fL RDW Coeff of Raman (11.5-14.5) % Plt Count (130-400) K/uL MPV (9.4-12.4) fL Immature Gran % (Auto) % Neut % (Auto) % Lymph % (Auto) % [place] % (Auto) % Eos % (Auto) % Baso % (Auto) % Neut # (Auto) (1.4-6.5) K/uL Lymph # (Auto) (1.2-3.4) K/uL [place] # (Auto) (0.24-0.82) K/uL Eos # (Auto) (0-0.50) K/uL Baso # (Auto) (0-0.2) K/uL Immature Gran # (Auto) (0.00-0.02) K/uL Sodium (136-145) mmol/L Potassium (3.5-5.1) mmol/L Chloride (98-107) mmol/L Carbon Dioxide (21-32) mmol/L Anion Gap (3-11) BUN (6-23) mg/dl Creatinine (0.6-1.4) mg/dl Est Cr Clr Drug Dosing ml/min Est GFR ( Amer) ml/min Est GFR (Non-Af Amer) ml/min BUN/Creatinine Ratio (10-20) Glucose (70-99(Fasting)) mg/dl Osmolality (280-300) mOsm/kg Calcium (8.5-10.1) mg/dl Magnesium (1.7-2.4) mg/dl Total Bilirubin (0.2-1.0) mg/dl Direct Bilirubin (0-0.2) mg/dl AST (13-39) U/L ALT (7-52) U/L Alkaline Phosphatase (34-104) U/L Troponin I High Sens (0-20) pg/ml C-Reactive Protein (0-0.5) mg/dl Total Protein (6.0-8.3) gm/dl Albumin (3.4-5.0) gm/dl Globulin (2.5-4.0) gm/dl Albumin/Globulin Ratio (0.9-2) Procalcitonin (0-0.5) ng/ml TSH (0.300-4.500) uIu/ml Urine Color Yellow Urine Appearance Clear (Clear) Urine pH 5.0 (4.5-7.5) Ur Specific [place] 1.022 (1.000-1.030) Urine Protein Negative (Negative) Urine Glucose (UA) 3+ H (Negative) Urine Ketones Negative (Negative) Urine Blood Negative (Negative) Urine Nitrite Negative (Negative) Urine Bilirubin Negative (Negative) Urine Urobilinogen Negative (Negative) Ur Leukocyte Esterase Negative (Negative) Urine Osmolality 577 (500-800) mOsm/kg Ur Random Sodium 18 mmol/L SARS-CoV-2, RNA, NAAT (NEGATIVE) 05/09/22 Range/Units 20:40 WBC (4.8-10.8) K/ul RBC (4.63-6.08) M/uL Hgb (14.0-18.0) g/dl Hct (40.1-51.0) % MCV (80.0-100.0) fL MCH (25.0-34.0) pg MCHC (32.0-36.0) g/dL RDW Std Deviation (36.4-46.3) fL RDW Coeff of Raman (11.5-14.5) % Plt Count (130-400) K/uL MPV (9.4-12.4) fL Immature Gran % (Auto) % Neut % (Auto) % Lymph % (Auto) % [place] % (Auto) % Eos % (Auto) % Baso % (Auto) % Neut # (Auto) (1.4-6.5) K/uL Lymph # (Auto) (1.2-3.4) K/uL [place] # (Auto) (0.24-0.82) K/uL Eos # (Auto) (0-0.50) K/uL Baso # (Auto) (0-0.2) K/uL Immature Gran # (Auto) (0.00-0.02) K/uL Sodium (136-145) mmol/L Potassium (3.5-5.1) mmol/L Chloride (98-107) mmol/L Carbon Dioxide (21-32) mmol/L Anion Gap (3-11) BUN (6-23) mg/dl Creatinine (0.6-1.4) mg/dl Est Cr Clr Drug Dosing ml/min Est GFR ( Amer) ml/min Est GFR (Non-Af Amer) ml/min BUN/Creatinine Ratio (10-20) Glucose (70-99(Fasting)) mg/dl Osmolality (280-300) mOsm/kg Calcium (8.5-10.1) mg/dl Magnesium (1.7-2.4) mg/dl Total Bilirubin (0.2-1.0) mg/dl Direct Bilirubin 0.2 (0-0.2) mg/dl AST (13-39) U/L ALT (7-52) U/L Alkaline Phosphatase (34-104) U/L Troponin I High Sens 68.2 H* (0-20) pg/ml C-Reactive Protein 28.69 H (0-0.5) mg/dl Total Protein (6.0-8.3) gm/dl Albumin (3.4-5.0) gm/dl Globulin (2.5-4.0) gm/dl Albumin/Globulin Ratio (0.9-2) Procalcitonin (0-0.5) ng/ml TSH (0.300-4.500) uIu/ml Urine Color Urine Appearance (Clear) Urine pH (4.5-7.5) Ur Specific [place] (1.000-1.030) Urine Protein (Negative) Urine Glucose (UA) (Negative) Urine Ketones (Negative) Urine Blood (Negative) Urine Nitrite (Negative) Urine Bilirubin (Negative) Urine Urobilinogen (Negative) Ur Leukocyte Esterase (Negative) Urine Osmolality (500-800) mOsm/kg Ur Random Sodium mmol/L SARS-CoV-2, RNA, NAAT (NEGATIVE) Administered Medications Discontinued Medications Apixaban (Apixaban 5 Mg Tablet) 5 mg PO BID HILDA Stop: 06/08/22 22:17 Last Admin: 05/11/22 07:53 Dose: 5 mg Documented By: Admin: 05/10/22 20:57 Dose: 5 mg Documented By: Admin: 05/10/22 09:05 Dose: 5 mg Documented By: MYESHA Co-signed By: AM Admin: 05/09/22 23:34 Dose: 5 mg Documented By: RENETTA Atorvastatin Calcium (Atorvastatin 40 Mg Tab) 80 mg PO HS HILDA Stop: 06/08/22 22:17 Last Admin: 05/14/22 20:10 Dose: 80 mg Documented By: Admin: 05/13/22 20:07 Dose: 80 mg Documented By: Admin: 05/12/22 20:19 Dose: 80 mg Documented By: Admin: 05/11/22 20:49 Dose: 80 mg Documented By: Admin: 05/10/22 20:57 Dose: 80 mg Documented By: Admin: 05/09/22 23:35 Dose: 80 mg Documented By: RENETTA Bupivacaine HCl (Bupivacaine/Epinephrine 0.5% 1:200,000 1.8 Ml Carp) Confirm Administered Dose 10.8 ml .ROUTE .STK-MED ONE Stop: 05/14/22 07:18 Last Admin: 05/14/22 08:18 Dose: 5.4 ml Documented By: SELINA Carvedilol (Carvedilol 25 Mg Tab) 25 mg PO BID HILDA Stop: 06/08/22 22:17 Last Admin: 05/15/22 08:29 Dose: 25 mg Documented By: Admin: 05/14/22 20:10 Dose: 25 mg Documented By: Admin: 05/14/22 09:41 Dose: 25 mg Documented By: Admin: 05/13/22 20:07 Dose: 25 mg Documented By: Admin: 05/13/22 08:19 Dose: 25 mg Documented By: Admin: 05/12/22 20:19 Dose: 25 mg Documented By: Admin: 05/12/22 09:10 Dose: 25 mg Documented By: ESPERANZA(2) Admin: 05/11/22 20:49 Dose: 25 mg Documented By: Admin: 05/11/22 07:54 Dose: 25 mg Documented By: Admin: 05/10/22 20:57 Dose: Not Given Documented By: Admin: 05/10/22 09:06 Dose: 25 mg Documented By: MYESHA Co-signed By: ESPERANZA Admin: 05/09/22 23:35 Dose: 25 mg Documented By: RENETTA Chlorhexidine Gluconate (Chlorhexidine Gluconate 0.12% 480 Ml) Confirm Administered Dose 480 ml .ROUTE .STK-MED ONE Stop: 05/14/22 07:19 Last Admin: 05/14/22 07:59 Dose: 480 ml Documented By: SELINA Chlorhexidine Gluconate (Chlorhexidine Gluconate 0.12% 480 Ml) 15 ml MT BID PRN PRN Reason: Prophylaxis Stop: 06/13/22 08:45 Last Admin: 05/14/22 09:42 Dose: 15 ml Documented By: THOMAS Fentanyl Citrate (Fentanyl Citrate 100 Mcg/2 Ml Vial) 25 mcg IV Q5M PRN PRN Reason: PACU Use Only-Pain Stop: 05/14/22 15:23 Last Admin: 05/14/22 09:16 Dose: 25 mcg Documented By: Admin: 05/14/22 09:06 Dose: 25 mcg Documented By: Admin: 05/14/22 09:01 Dose: 25 mcg Documented By: Admin: 05/14/22 08:56 Dose: 25 mcg Documented By: Admin: 05/14/22 08:51 Dose: 25 mcg Documented By: Admin: 05/14/22 08:46 Dose: 25 mcg Documented By: MARILIN Fentanyl Citrate (Fentanyl Citrate 100 Mcg/2 Ml Vial) Confirm Administered Dose 100 mcg .ROUTE .STK-MED ONE Stop: 05/14/22 08:45 Last Admin: 05/14/22 09:41 Dose: Not Given Documented By: THOMAS Fentanyl Citrate (Fentanyl Citrate 100 Mcg/2 Ml Vial) Confirm Administered Dose 100 mcg .ROUTE .STK-MED ONE Stop: 05/14/22 09:05 Last Admin: 05/14/22 09:42 Dose: Not Given Documented By: THOMAS Sodium Chloride (Nss 1000ml) 1,000 mls @ 125 mls/hr IV .Q8H HILDA Stop: 05/10/22 01:59 Last Infusion: 05/10/22 02:46 Dose: 0 mls/hr Documented By: Admin: 05/09/22 18:46 Dose: 125 mls/hr Documented By: EDMOND Ampicillin Sodium/Sulbactam Sodium 3,000 mg/ Sodium Chloride 108 mls @ 200 mls/hr IV NOW STA; Protocol Stop: 05/09/22 22:43 Last Admin: 05/10/22 00:19 Dose: Not Given Documented By: RENETTA Ampicillin Sodium/Sulbactam Sodium 3,000 mg/ Sodium Chloride 108 mls @ 200 mls/hr IV Q6H HILDA; Protocol Stop: 05/12/22 00:00 Last Infusion: 05/12/22 00:09 Dose: 0 mls/hr Documented By: Admin: 05/11/22 23:41 Dose: 200 mls/hr Documented By: Infusion: 05/11/22 18:38 Dose: 0 mls/hr Documented By: Admin: 05/11/22 18:00 Dose: 200 mls/hr Documented By: Infusion: 05/11/22 13:00 Dose: 0 mls/hr Documented By: Admin: 05/11/22 12:07 Dose: 200 mls/hr Documented By: Infusion: 05/11/22 05:45 Dose: 0 mls/hr Documented By: Admin: 05/11/22 05:12 Dose: 200 mls/hr Documented By: Infusion: 05/11/22 01:31 Dose: 0 mls/hr Documented By: Admin: 05/11/22 00:58 Dose: 200 mls/hr Documented By: Infusion: 05/10/22 20:54 Dose: 0 mls/hr Documented By: Admin: 05/10/22 20:20 Dose: 200 mls/hr Documented By: Infusion: 05/10/22 13:00 Dose: 0 mls/hr Documented By: Admin: 05/10/22 12:10 Dose: 200 mls/hr Documented By: MYESHA Co-signed By: ESPERANZA Infusion: 05/10/22 05:58 Dose: 0 mls/hr Documented By: Admin: 05/10/22 05:25 Dose: 200 mls/hr Documented By: Infusion: 05/10/22 00:50 Dose: 0 mls/hr Documented By: Admin: 05/10/22 00:17 Dose: 200 mls/hr Documented By: RENETTA Sodium Chloride (Nss 1000ml) 1,000 mls @ 80 mls/hr IV .[id number] HILDA Stop: 05/10/22 21:29 Last Infusion: 05/10/22 21:46 Dose: 0 mls/hr Documented By: Admin: 05/10/22 09:16 Dose: 80 mls/hr Documented By: MYESHA Co-signed By: AM Ampicillin Sodium/Sulbactam Sodium 3,000 mg/ Sodium Chloride 108 mls @ 200 mls/hr IV Q6H [facility]; Protocol Stop: 05/22/22 07:59 Last Infusion: 05/15/22 09:40 Dose: 0 mls/hr Documented By: Admin: 05/15/22 08:35 Dose: 200 mls/hr Documented By: Infusion: 05/15/22 03:30 Dose: 0 mls/hr Documented By: Admin: 05/15/22 03:09 Dose: 200 mls/hr Documented By: Infusion: 05/14/22 20:50 Dose: 0 mls/hr Documented By: Admin: 05/14/22 20:07 Dose: 200 mls/hr Documented By: Infusion: 05/14/22 15:17 Dose: 0 mls/hr Documented By: Admin: 05/14/22 14:40 Dose: 200 mls/hr Documented By: Infusion: 05/14/22 10:14 Dose: 0 mls/hr Documented By: Admin: 05/14/22 09:39 Dose: 200 mls/hr Documented By: Infusion: 05/14/22 01:58 Dose: 0 mls/hr Documented By: Admin: 05/14/22 01:18 Dose: 200 mls/hr Documented By: Infusion: 05/13/22 21:14 Dose: 0 mls/hr Documented By: Admin: 05/13/22 20:06 Dose: 200 mls/hr Documented By: Infusion: 05/13/22 13:50 Dose: 0 mls/hr Documented By: KEPaulina Admin: 05/13/22 13:15 Dose: 200 mls/hr Documented By: Infusion: 05/13/22 09:17 Dose: 0 mls/hr Documented By: Admin: 05/13/22 08:19 Dose: 200 mls/hr Documented By: Infusion: 05/13/22 03:00 Dose: 0 mls/hr Documented By: Admin: 05/13/22 02:29 Dose: 200 mls/hr Documented By: Infusion: 05/12/22 20:57 Dose: 0 mls/hr Documented By: Admin: 05/12/22 20:19 Dose: 200 mls/hr Documented By: Infusion: 05/12/22 14:44 Dose: 0 mls/hr Documented By: AM(2) Admin: 05/12/22 13:57 Dose: 200 mls/hr Documented By: AM(2) Infusion: 05/12/22 09:11 Dose: 0 mls/hr Documented By: AM(2) Admin: 05/12/22 08:00 Dose: 200 mls/hr Documented By: AM(2) Insulin Aspart (Insulin Aspart Per Unit) 0 units SC ACHS HILDA Stop: 06/08/22 22:17 Last Admin: 05/15/22 12:05 Dose: 5 units Documented By: SHARIF Co-signed By: RUPALI Admin: 05/15/22 08:34 Dose: 19 units Documented By: SHARIF Co-signed By: NEVAEH Admin: 05/14/22 20:12 Dose: 8 units Documented By: ROSALIO Co-signed By: SEDA Admin: 05/14/22 17:10 Dose: 20 units Documented By: THOMAS Co-signed By: VANESSA Admin: 05/14/22 11:58 Dose: 3 units Documented By: THOMAS Co-signed By: VANESSA Admin: 05/14/22 07:13 Dose: Not Given Documented By: Admin: 05/13/22 20:07 Dose: Not Given Documented By: Admin: 05/13/22 17:18 Dose: 15 units Documented By: THOMAS Co-signed By: JESSI Admin: 05/13/22 13:19 Dose: 2 units Documented By: THOMAS Co-signed By: VANESSA Admin: 05/13/22 08:25 Dose: 11 units Documented By: THOMAS Co-signed By: VANESSA Admin: 05/12/22 20:25 Dose: 2 units Documented By: ROSALIO Co-signed By: ARR Admin: 05/12/22 16:55 Dose: 9 units Documented By: AM(2) Co-signed By: CAMN Admin: 05/12/22 12:05 Dose: 10 units Documented By: AM(2) Co-signed By: CA Admin: 05/12/22 09:10 Dose: 7 units Documented By: AM(2) Co-signed By: JESSI Admin: 05/11/22 20:47 Dose: 7 units Documented By: ROSALIO Co-signed By: AM(3) Admin: 05/11/22 17:07 Dose: 20 units Documented By: CG Co-signed By: SHARIF Admin: 05/11/22 12:06 Dose: 4 units Documented By: CG Co-signed By: VANESSA Admin: 05/11/22 08:35 Dose: 6 units Documented By: CG Co-signed By: CA Admin: 05/10/22 20:56 Dose: 11 units Documented By: RENETTA Co-signed By: ESPERANZA(3) Admin: 05/10/22 17:13 Dose: 6 units Documented By: MARI Co-signed By: KYLE Admin: 05/10/22 12:13 Dose: 11 units Documented By: MYESHA Co-signed By: ESPERANZA Admin: 05/10/22 09:13 Dose: 6 units Documented By: MYESHA Co-signed By: ESPERANZA Admin: 05/09/22 22:58 Dose: 5 units Documented By: RENETTA Co-signed By: JASIEL Insulin Aspart (Insulin Aspart Per Unit) 0 units SC 0330 ONE Stop: 05/10/22 03:31 Last Admin: 05/10/22 03:34 Dose: 4 units Documented By: RENETTA Co-signed By: JASIEL Insulin Aspart (Insulin Aspart Per Unit) 0 units SC 0000,0400 HILDA Stop: 05/11/22 04:01 Last Admin: 05/11/22 05:12 Dose: 2 units Documented By: RENETTA Co-signed By: ALBINO Admin: 05/11/22 00:18 Dose: 1 units Documented By: RENETTA Co-signed By: ALBINO Insulin Human NPH (Insulin Human Nph) 20 units SC NOW ONE Stop: 05/10/22 08:01 Last Admin: 05/10/22 09:07 Dose: 20 units Documented By: MYESHA Co-signed By: ESPERANZA Insulin Human NPH (Insulin Human Nph) 10 units SC NOW ONE Stop: 05/10/22 17:31 Last Admin: 05/10/22 17:14 Dose: 10 units Documented By: MARI Co-signed By: KYLE Insulin Human NPH (Insulin Human Nph) 18 units SC NOW ONE Stop: 05/11/22 09:01 Last Admin: 05/11/22 09:30 Dose: 18 units Documented By: BIANCA Co-signed By: DONI Insulin Human NPH (Insulin Human Nph) 10 units SC QDD [facility] Stop: 06/10/22 16:29 Last Admin: 05/13/22 17:18 Dose: 10 units Documented By: THOMAS Co-signed By: JESSI Admin: 05/12/22 16:55 Dose: 10 units Documented By: ESPERANZA(2) Co-signed By: JESSI Admin: 05/11/22 16:55 Dose: 10 units Documented By: BIANCA Co-signed By: VANESSA Insulin Human NPH (Insulin Human Nph) 22 units SC NOW ONE Stop: 05/12/22 09:01 Last Admin: 05/12/22 09:11 Dose: 22 units Documented By: ESPERANZA(2) Co-signed By: JESSI Insulin Human NPH (Insulin Human Nph) 22 units SC QDB [facility] Stop: 06/12/22 07:29 Last Admin: 05/15/22 08:35 Dose: 22 units Documented By: SHARIF Co-signed By: NEVAEH Admin: 05/13/22 08:25 Dose: 22 units Documented By: THOMAS Co-signed By: VANESSA Insulin Human NPH (Insulin Human Nph) 0 units SC QDD [facility]; Protocol Stop: 06/13/22 16:29 Last Admin: 05/14/22 17:11 Dose: 10 units Documented By: THOMAS Co-signed By: VANESSA Insulin Human Regular (Novolin-R Insulin Per Unit Charge) 10 units IV NOW STA Stop: 05/09/22 18:55 Last Admin: 05/09/22 19:02 Dose: 10 units Documented By: EDMOND Co-signed By: CRIS Isosorbide Mononitrate (Isosorbide Steuben Extended Rel 60 Mg Tabcr) 120 mg PO QAM [facility] Stop: 06/09/22 08:59 Last Admin: 05/11/22 07:54 Dose: 120 mg Documented By: Admin: 05/10/22 09:07 Dose: 120 mg Documented By: MYESHA Co-signed By: ESPERANZA Isosorbide Mononitrate (Isosorbide Steuben Extended Rel 60 Mg Tabcr) 60 mg PO QAM [facility] Stop: 06/11/22 08:59 Last Admin: 05/13/22 08:19 Dose: 60 mg Documented By: Admin: 05/12/22 09:11 Dose: 60 mg Documented By: ESPERANZA(2) Isosorbide Mononitrate (Isosorbide Steuben Extended Rel 60 Mg Tabcr) 120 mg PO QAM [facility] Stop: 06/13/22 08:59 Last Admin: 05/15/22 08:30 Dose: 120 mg Documented By: Admin: 05/14/22 09:42 Dose: 120 mg Documented By: THOMAS Isosorbide Mononitrate (Isosorbide Steuben Extended Rel 60 Mg Tabcr) 60 mg PO ONE ONE Stop: 05/13/22 13:31 Last Admin: 05/13/22 14:52 Dose: 60 mg Documented By: THOMAS Oxycodone/Acetaminophen (Oxycodone/Acetaminophen 5mg/325mg Tab) 1 tab PO Q4H PRN PRN Reason: MODERATE Pain (4,5,6) & Pre PT Stop: 05/23/22 22:17 Last Admin: 05/14/22 10:39 Dose: 1 tab Documented By: Admin: 05/09/22 23:34 Dose: 1 tab Documented By: RENETTA Oxycodone/Acetaminophen (Oxycodone/Acetaminophen 5mg/325mg Tab) 2 tab PO Q4H PRN PRN Reason: SEVERE Pain (7,8,9,10) Stop: 05/23/22 22:17 Last Admin: 05/15/22 12:08 Dose: 2 tab Documented By: Admin: 05/13/22 08:18 Dose: 2 tab Documented By: Admin: 05/13/22 02:29 Dose: 2 tab Documented By: Admin: 05/12/22 16:52 Dose: 2 tab Documented By: AM(2) Admin: 05/11/22 18:43 Dose: 2 tab Documented By: Admin: 05/11/22 07:45 Dose: 2 tab Documented By: Admin: 05/10/22 05:26 Dose: 2 tab Documented By: RENETTA Paroxetine HCl (Paroxetine Hcl 10 Mg Tab) 10 mg PO DAILY [facility] Stop: 06/10/22 15:59 Last Admin: 05/15/22 08:30 Dose: 10 mg Documented By: Admin: 05/14/22 09:49 Dose: 10 mg Documented By: Admin: 05/13/22 08:19 Dose: 10 mg Documented By: Admin: 05/12/22 09:11 Dose: 10 mg Documented By: AM(2) Admin: 05/11/22 16:54 Dose: 10 mg Documented By: BIANCA Ranolazine (Ranolazine 500 Mg Er Tab) 1,000 mg PO BID HILDA Stop: 06/08/22 22:17 Last Admin: 05/15/22 08:29 Dose: 1,000 mg Documented By: Admin: 05/14/22 20:10 Dose: 1,000 mg Documented By: Admin: 05/14/22 09:41 Dose: 1,000 mg Documented By: Admin: 05/13/22 20:07 Dose: 1,000 mg Documented By: Admin: 05/13/22 08:19 Dose: 1,000 mg Documented By: Admin: 05/12/22 20:19 Dose: 1,000 mg Documented By: Admin: 05/12/22 09:11 Dose: 1,000 mg Documented By: ESPERANZA(2) Admin: 05/11/22 20:49 Dose: 1,000 mg Documented By: Admin: 05/11/22 07:54 Dose: 1,000 mg Documented By: Admin: 05/10/22 20:57 Dose: 1,000 mg Documented By: Admin: 05/10/22 09:06 Dose: 1,000 mg Documented By: MYESHA Co-signed By: ESPERANZA Admin: 05/09/22 23:35 Dose: 1,000 mg Documented By: RENETTA Sodium Polystyrene Sulfonate (Sodium Polystyrene Sulfonate 15g/60ml Susp) 15 gm PO NOW STA Stop: 05/13/22 10:07 Last Admin: 05/13/22 12:14 Dose: 15 gm Documented By: THOMAS Sodium Polystyrene Sulfonate (Sodium Polystyrene Sulfonate 15g/60ml Susp) 15 gm PO NOW STA Stop: 05/15/22 07:10 Last Admin: 05/15/22 08:26 Dose: Not Given Documented By: [facility] Imaging Data Radiologist's Impression: Chest X-Ray 05/09/22 17:55 XR chest 1V portable CLINICAL HISTORY: weakness COMPARISON STUDY: Chest radiograph January 29, 2019. FINDINGS: A right subclavian pacer/AICD remains in place. There are median sternotomy wires. Cardiomegaly is unchanged. No evidence for pulmonary edema. No pneumothorax or pleural effusion. There is no consolidation. IMPRESSION: No acute cardiopulmonary findings. Cardiomegaly. ACT 112: Negative or not required by law. Electronically signed by: Braden Peña M.D. 05/09/2022 6:[address] 05/09/22 17:55 CT OF THE HEAD WITHOUT CONTRAST CLINICAL HISTORY: Weakness, frequent falls COMPARISON STUDY: MRI of the brain November 06, 2012. Head CT October 30, 2012. CT DOSE: 994.86 mGycm TECHNIQUE: Helical axial images of the head were obtained without IV contrast. Automated exposure control was utilized for the study. A dose lowering technique was utilized adhering to the principles of ALARA. FINDINGS: No acute intracranial hemorrhage, midline shift or mass effect is present. Extensive white matter hypodensities likely reflect small vessel disease. The ventricular system is unremarkable. The basal cisterns are patent. No extra-axial collections are present. There are no findings to suggest acute dural sinus thrombosis or acute territorial infarct. No significant calvarial abnormalities are present. Visualized portions of the sinuses and mastoid air cells are clear. IMPRESSION: 1. No acute intracranial findings. 2. No acute calvarial fracture. ACT 112: Negative or not required by law. Electronically signed by: Braden Peña M.D. 05/09/2022 6:[address] 05/09/22 18:[address] WITHOUT CONTRAST CLINICAL HISTORY: Trauma. COMPARISON STUDY: Head CT October 30, 2012. TECHNIQUE: A maxillofacial CT was performed without IV contrast. Coronal and sagittal reformats were viewed. Automated exposure control was utilized for the study. A dose lowering technique was utilized adhering to the principles of ALARA. FINDINGS: Suspected contusion of the chin is noted. No acute mandibular fracture is noted. Alignment of the temporomandibular joints is anatomic. Multiple teeth are absent. No acute facial fracture is identified. Globes are intact. There is no retrobulbar hematoma. No skull base fracture is present. IMPRESSION: 1. No acute facial fracture. 2. Left inferior facial/chin contusion. ACT 112: Negative or not required by law. Electronically signed by: Braden Peña M.D. 05/09/2022 7:22 PM Blood Pressure Blood Pressure Findings: Normal blood pressure Blood Pressure Disposition: did not require urgent referral Discharge Plan Visit Data Chief Complaint: Weakness ED Provider: Sena Cannon Discharge Problem: Acute kidney injury, Traumatic hematoma of face, Acute hyponatremia, Acute hyperglycemia, Troponin level elevated Patient Disposition: Admitted As Inpatient Discharge Instructions Interventions: ED Discharge Assessment Last Done: 05/09/22 22:14 : Traumatic hematoma of face Qualifiers: Encounter type: initial encounter Qualified Code(s): S00.83XA - Contusion of other part of head, initial encounter
[2022-05-09 21:38] LABS: Bilirubin Direct 0.2 mg/dl (0-0.2); C Reactive Protein 28.69 mg/dl (0-0.5); Troponin I High Sensitivity 68.2 pg/ml (0-20)
[2022-05-09] MEDS ORDERED: AMPICILLIN/SULBACTAM SOD 3,000 MG in 0.9 % SODIUM CHLORIDE 100 ML IV STA (22:11)
[2022-05-09] MEDS ORDERED: DEXTROSE 50% 50 ML SYRINGE IV PRN (22:18)
[2022-05-09] MEDS ORDERED: PHARMACY GLYCEMIC MGMT CONSULT PRN (22:18)
[2022-05-09] MEDS ORDERED: GLUCAGON FOR INJ 1 MG VIAL SQ PRN (22:18)
[2022-05-09] MEDS ORDERED: POLYETHYLENE (MIRALAX) 17 GM PACK PO PRN (22:18)
[2022-05-09] MEDS ORDERED: CARBOHYDRATES FOR HYPOGLYCEMIA PO PRN (22:18)
[2022-05-09] MEDS ORDERED: GLUCOSE 40% GEL 15 GM TUBE PO PRN (22:18)
[2022-05-09] MEDS ORDERED: GLUCOSE 10 TAB/TUBE PO PRN (22:18)
[2022-05-09] MEDS ORDERED: NITROGLYCERIN SL 0.4 MG/TAB TAB SL PRN (22:18)
[2022-05-09] MEDS ORDERED: ACETAMINOPHEN 500 MG TAB PO PRN (22:18)
[2022-05-09] MEDS: INSULIN ASPART PER UNIT SC SCH (22:58)
[2022-05-09 23:05] LABS: Calcium 9.3 mg/dl (8.5-10.1); Creatinine Clr Calc Pharmacy 42.8 ml/min; Est GFR (African American) 38.2 ml/min; Potassium 5.4 mmol/L (3.5-5.1)
[2022-05-09] MEDS: oxyCODONE/ACETAMINOPHEN 5mg/325mg TAB PO PRN (23:34)
[2022-05-09] MEDS: APIXABAN 5 MG TABLET PO SCH (23:34)
[2022-05-09] MEDS: carvediloL 25 MG TAB PO SCH (23:35)
[2022-05-09] MEDS: ATORVASTATIN 40 MG TAB PO SCH (23:35)
[2022-05-09] MEDS: RANOLAZINE 500 MG ER TAB PO SCH (23:35)
[2022-05-10] MEDS: AMPICILLIN/SULBACTAM SOD 3,000 MG in 0.9 % SODIUM CHLORIDE 100 ML IV SCH ×4 (00:17→20:20)
[2022-05-10] MEDS ORDERED: INSULIN ASPART PER UNIT SC ONE (03:30)
[2022-05-10] MEDS: oxyCODONE/ACETAMINOPHEN 5mg/325mg TAB PO PRN (05:26)
[2022-05-10 06:45] LABS: Hematocrit (blood only) 41.7 % (40.1-51.0); Hemoglobin 14.2 g/dl (14.0-18.0); Mean Corpuscular Hgb Conc 34.1 g/dL (32.0-36.0); Mean Platelet Volume 11.1 fL (9.4-12.4); Platelet Count 79 K/uL (130-400); RDW Coefficient of Variation 13.6 % (11.5-14.5); RDW Standard Deviation 45.2 fL (36.4-46.3); Red Blood Count 4.58 M/uL (4.63-6.08); White Blood Count 13.68 K/ul (4.8-10.8)
[2022-05-10 06:51] LABS: BUN Creatinine Ratio 47.1 (10-20); C Reactive Protein 26.06 mg/dl (0-0.5); Calcium 8.9 mg/dl (8.5-10.1); Creatinine Clr Calc Pharmacy 42.4 ml/min; Est GFR (African American) 37.8 ml/min; Est GFR (Non-African American) 32.6 ml/min
[2022-05-10 06:55] LABS: Basophils # (auto) 0.02 K/uL (0-0.2); Basophils % (auto) 0.1 %; Eosinophils # (auto) 0.01 K/uL (0-0.50); Eosinophils % (auto) 0.1 %; Immature Granulocytes # (auto) 0.28 K/uL (0.00-0.02); Lymphocytes # (auto) 0.99 K/uL (1.2-3.4); Lymphocytes % (auto) 7.2 %; Monocytes # (auto) 1.45 K/uL (0.24-0.82); Monocytes % (auto) 10.6 %; Neutrophils # (auto) 10.93 K/uL (1.4-6.5); Platelet Estimate Decreased (Normal); Troponin I High Sensitivity 79.7 pg/ml (0-20)
[2022-05-10 07:53] LABS: Estimated Average Glucose 315 mg/dl; Hemoglobin A1C 12.6 % (4.5-5.6)
[2022-05-10] MEDS ORDERED: INSULIN HUMAN NPH SC ONE ×2 (08:00→17:30)
--- NOTE | 2022-05-10 08:11 | CT Scan Report ---
ABDOMEN AND PELVIS CT WITHOUT CONTRAST CT DOSE: 2032.80 mGy.cm HISTORY: Acute generalized abdominal pain abdominal pain TECHNIQUE: Multiaxial CT images of the abdomen and pelvis were performed without contrast. A dose lo wering technique was utilized adhering to the principles of ALARA. COMPARISON STUDY: Abdominal ultrasound 11/21/2018, 10/07/2012 FINDINGS: Cardiomegaly with partially imaged pacer leads. Coronary artery calcifications. Prior media n sternotomy. Clear lung bases. No pneumatosis or pneumoperitoneum. The unenhanced spleen, pancreas a nd adrenal glands are unremarkable. Cholelithiasis without CT evidence of acute cholecystitis or bili anisa ductal dilation. There is questioned mild hepatic steatosis with equivocal marginal nodularity. N o hepatic mass identified. Nonspecific bilateral perinephric stranding. No renal or ureteral calculi or hydronephrosis. There is an exophytic 1.4 cm mildly hyperdense lesion within the inferior pole left kidney, Hounsfield unit o f 51. Unremarkable urinary bladder. Mild prostamegaly. Small fat filled inguinal hernias. Atheroscler osis of the aorta without aneurysm. There is no lymphadenopathy. Mild nonspecific distal esophageal wall thickening. No bowel obstruction or bowel wall thickening. No rmal appendix. No ascites or mesenteric inflammation. Tiny fat filled umbilical hernia. Degenerative changes of the spine, pelvis and hips. IMPRESSION: 1. No bowel obstruction or bowel wall thickening. Normal appendix. 2. Cholelithiasis without CT evidence of acute cholecystitis. 3. Equivocal mild marginal nodularity of the liver raises the possibility of early cirrhosis. Correla te with LFTs. 4. 1.4 cm hyperdense lesion of the inferior pole left kidney. Correlation with a nonemergent follow-u p renal ultrasound recommended. 5. Additional findings as above. ACT 112: Negative or not required by law. The above report was generated using voice recognition software. It may contain grammatical, syntax o r spelling errors. Electronically signed by: Lucas Rodriguez M.D. 05/10/2022 8:10 AM
[2022-05-10] MEDS ORDERED: SODIUM CHLORIDE 0.9% 1000ML 1,000 ML IV SCH (09:00)
[2022-05-10] MEDS: APIXABAN 5 MG TABLET PO SCH ×2 (09:05→20:57)
[2022-05-10] MEDS: carvediloL 25 MG TAB PO SCH ×2 (09:06→20:57)
[2022-05-10] MEDS: RANOLAZINE 500 MG ER TAB PO SCH ×2 (09:06→20:57)
[2022-05-10] MEDS: ISOSORBIDE MONO EXTENDED REL 60 MG TABCR PO SCH (09:07)
[2022-05-10] MEDS: INSULIN ASPART PER UNIT SC SCH ×4 (09:13→20:56)
--- NOTE | 2022-05-10 10:54 | XCELERA ---
[id number]
--- NOTE | 2022-05-10 12:02 | Electrocardiogram Report ---
Test Reason : Blood Pressure : / mmHG Vent. Rate : 097 BPM Atrial Rate : 291 BPM P-R Int : 000 ms QRS Dur : 134 ms QT Int : 378 ms P-R-T Axes : -89 -25 170 degrees QTc Int : 480 ms Atrial flutter with variable A-V block with premature ventricular or aberrantly conducted complexes Non-specific intra-ventricular conduction block Possible Anterolateral infarct (cited on or before 20-JAN-2016) T wave abnormality, consider inferior ischemia Abnormal ECG When compared with ECG of 23-NOV-2018 06:27, Atrial flutter has replaced Atrial fibrillation Questionable change in initial forces of Anterolateral leads T wave inversion now evident in Inferior leads Inverted T waves have replaced nonspecific T wave abnormality in Lateral leads Confirmed by Adrian Caballero ([id number]) on 05/10/2022 12:02:08 PM Referred By: REFERRED SELF Confirmed By:Adrian Caballero
--- NOTE | 2022-05-10 12:04 | Pharmacy Report ---
Pharmacy Glycemic Short Note 2 - Date of Service May 10, 2022 - Glycemic Short BSG Results (Last 24 hours): 05/09/22 05/09/22 05/09/22 16:18 22:14 22:36 Glucose 408 H* 255 H POC Glucose 263 H 05/10/22 05/10/22 05/10/22 03:24 05:54 07:17 Glucose 233 H POC Glucose 217 H 234 H 05/10/22 05/10/22 11:46 11:48 Glucose POC Glucose 306 H* 296 H OUTPATIENT ANTIDIABETIC REGIMEN: * Novolin 70/30 32 units in the morning and 14 units in the evening * HbA1C = 12.6% (05/10/22) ASSESSMENT: * Mr Craig is a 67 y/o M with a PMH of T2DM who presents with a fall. * Admitting BSG was 408 mg/dL for which the patient received 10 units of IV insulin. * Overnight the patient's BSGs were 263-217 mg/dL and patient received 9 units of Novolog. * Fasting BSG was 234 mg/dL. * Per previous admission, patient did well with his home regimen. * Start NPH 20 units in morning and 10 units at dinner (approximately 70% of home regimen) plus Novolog weight-based stress of 2. * Overnight checks to establish true basal needs. PLAN FOR INPATIENT GLYCEMIC CONTROL: * Hold outpatient oral diabetes medications * Basal insulin * NPH 20 units SQ in morning then 10 units at dinner * Bolus insulin * NovoLog per scale ACHS or Q6hrs while NPO * Goal Range: Low 110 mg/dL - High 140 mg/dL * Correction Factor: 20 mg/dL/unit * Nutritional / Prandial insulin per carb ratio of 1 unit per 7 grams CHO consumed
[2022-05-10] MEDS: ATORVASTATIN 40 MG TAB PO SCH (20:57)
--- NOTE | 2022-05-10 21:00 | Hospitalist Progress Note ---
Date of Service May 10, 2022 Assessment & Plan (1) Acute on chronic kidney failure: Plan: - Cr 2.30, BUN 102, hard to say what his baseline Cr function is. It was 1.27 at the beginning of the year, prior labs are > 1 year old, was 1.4-2.0 then. - Will provide gentle IVF in addition to what he received in the ED, hold nephrotoxic agents--lisinopril, Lasix--however may need to restart Lasix if he appears volume overload. On 05/10 no significant change to creat. Patient however, does not appear to be volume overloaded on exam. will continue IVF 500 ml and recheck creat in AM. (2) Hyponatremia: Plan: - Na 126, corrects to 131 when accounting for hyperglycemia. - Serum osm high at 337, urine osm 577, urine Na 18. - Suspect mostly hypertonic hyponatremia due to hyperglycemia, however is still midly low even when accounting for this. - Probably has a degree of hyponatremia as he has struggled to eat and drink due to jaw pain. - Will provide gentle IVF given hyponatremia and ANCELMO, but have to be cautious given low EF. - Holding several meds which may be causing low sodium--tramadol, clonazepam. Will try to hold diuretic temporarily as well for this as well as ANCELMO but might have to continue it and except some hit to kidneys to avoid volume overload. - repeat is showing 132 (3) Leukocytosis: Plan: - WBC 14, procal 0.72, CRP 28, No obvious source of infection yet. - Patient is complaining of jaw pain after a fall one month ago. He saw his dentist a few days ago who referred him to a maxillofacial surgeon. - CXR without evidence of pneumonia, UA without infection. Face CT shows contusion without fractures, hematomas, sinus infection. - Steroids finished one week ago. - For now will cover with Unasyn. - Echo in AM to r/o endocarditis. - CT A/P without contrast ordered. (4) Hyperkalemia: Plan: - 5.8, likely will resolve after receiving insulin for sugar, fluids for DIXON. - Hold lisinopril and KCl supplement. - EKG without peaked T waves, but with evidence of T ave inversions in lateral leads. - Potassium improved to 5 (5) Elevated troponin: Plan: - hs trop elevated at 75, repeat 68.2. Patient without angina or anginal equivalent symptoms, EKG does have some T wave inversions in lateral leads. - Trend trop overnight, echo in AM, new EKG daily and with angina/equivalent symptoms. -trop increased to 79 on 05/10 (6) Hyperglycemia: Plan: - 408, despite taking insulin today. He was on steroid taper for knee pain but this was finished a week ago. - 10 units insulin in ED. - Pharm consulted for glycemic management. (7) Frequent falls: Plan: - Can be multifactorial due to multiple meds hat may contribute--clonazepam, tramadol. HE is also mildly hyponatremic. - Fluids to correct ANCELMO, hyponatremia, holding above meds. - Daily orthostatic VS and have PT/OT see and evaluate patient. In regards to his jaw pain, CT scan showed no fracture Patient refused MRI to assess for possible infection or bone injury. Infection appears unlikely May consider consulting leticia blanco (8) Permanent atrial fibrillation: Plan: - Permanent, asymptomatic, remains rate controlled with carvedilol. - Continue Eliquis. Chronically thrombocytic, no acute bleeding issues. (9) Ischemic cardiomyopathy: Plan: - Has AICD. - Echo 04/10/22: EF 35-40%, mild global hypokinesis and mild LVH. - Continue carvedilol, hold lisinopril for now (ANCELMO, hyper K). (10) Chronic systolic congestive heart failure: Plan: - Holding Lasix for ANCELMO but would restart if he's becoming overloaded with IVF running for ANCELMO. - Continue carvedilol. - Low sodium/DM diet. - Strict I/Os. - Fluids capped at 1L - Daily weights. (11) Diabetes mellitus: Plan: - Glucose 408 today despite taking his insulin this AM. Given 10 units of insulin in ED. - Hold NPH, SSI for now with Accucheks ACHS. - A1c in AM. - Diabetic consult for conversion from NPH to Lantus. (12) Depression: Plan: - Could consider holding paroxetine for tomorrow given it can potentially contribute to hyponatremia but NA only slightly loq (131 corrected for glucose 400s), more likely low sodium is due to poor po intake. - Holding Clonazepam if able, patient has been on this qHS for awhile, do not want to cause withdrawal but may be contributing to falls. (13) Thrombocytopenia: Plan: - Chronic, PLTs 113 today, wnl for him. - No hx of liver disease. - Monitor on daily BMP. Plan - Admit to PCU. - SCDS, Eliquis for afib/VTE ppx. - Full Code. Admission and Anticipated Discharge Date Admission Date: May 09, 2022 Subjective 67 yo male reports that he continues to have pain in his lower jaw. Patient reports no new symptoms. Review of Systems Review of Systems: All systems reviewed & are unremarkable except as noted in HPI & below Physical Exam Physical Exam: General: awake, alert, no apparent distress Head: Normocephalic, atraumatic ENT: some mandibular swelling without open wound or marked erythema, edema; PERRL, EOMI, no pharyngeal exudate, mucous membranes moist Chest: Clear to auscultation, on room air, no adventitious breath sounds Cardiac: irregular rhythm consistent with afib, normal rate; no murmur, no JVD, normal peripheral pulses, good capillary refill Abdominal: NABS x 4 quadrants, soft, nontender to palpation, no rebound, guarding or tenderness Extremities: Normal inspection, no peripheral edema or erythema, calfs nontender to palpation Psych: Normal mood and affect Neuro: AAO x 3, strength intact bilaterally and rated 5/5, no motor deficits, speech is clear, no peripheral sensory deficits Skin: no rash or erythema Results & Data Results & Data ([facility]) Vital Signs (Past 12 Hours) Vital Signs Temp Pulse Pulse Resp BP BP Pulse Ox 05/10/22 18:56 37.0 C 95 H 18 94/63 L 92 05/10/22 17:35 93 H 05/10/22 16:37 94 05/10/22 15:30 36.5 C 98 H 20 103/65 94 05/10/22 11:52 36.5 C 78 20 99/66 L 93 O2 Del Method 05/10/22 18:56 Room Air 05/10/22 17:35 05/10/22 16:37 05/10/22 15:30 Room Air 05/10/22 11:52 Room Air PG Care Time/CCT Total # of Minutes Spent Total Time Spent with Patient: Total time spent is greater than 50% in coordination of care (as documented) at patient's floor/unit and/or counseling patient: Coding Level of Care Code 14603 Subseq Hosp Care Lvl 2 Diagnoses Acute on chronic kidney failure N17.9; N18.9 Hyponatremia E87.1 Leukocytosis D72.829 Hyperkalemia E87.5 Elevated troponin R77.8 Hyperglycemia R73.9 Frequent falls R29.6 Permanent atrial fibrillation I48.2 Ischemic cardiomyopathy I25.5 Chronic systolic congestive heart failure I50.22 Diabetes mellitus E11.9 Depression F32.9 Thrombocytopenia D69.6 Time Spent (min) 25
[2022-05-11] MEDS: INSULIN ASPART PER UNIT SC SCH ×6 (00:18→20:47)
[2022-05-11] MEDS: AMPICILLIN/SULBACTAM SOD 3,000 MG in 0.9 % SODIUM CHLORIDE 100 ML IV SCH ×5 (00:58→23:41)
[2022-05-11] MEDS: oxyCODONE/ACETAMINOPHEN 5mg/325mg TAB PO PRN ×2 (07:45→18:43)
[2022-05-11 07:48] LABS: Hematocrit (blood only) 41.2 % (40.1-51.0); Hemoglobin 14.1 g/dl (14.0-18.0); Mean Corpuscular Hemoglobin 30.9 pg (25.0-34.0); Mean Corpuscular Hgb Conc 34.2 g/dL (32.0-36.0); Mean Corpuscular Volume 90.4 fL (80.0-100.0); Platelet Count 77 K/uL (130-400); RDW Coefficient of Variation 13.9 % (11.5-14.5); Red Blood Count 4.56 M/uL (4.63-6.08); White Blood Count 12.98 K/ul (4.8-10.8)
[2022-05-11] MEDS: APIXABAN 5 MG TABLET PO SCH (07:53)
[2022-05-11] MEDS: ISOSORBIDE MONO EXTENDED REL 60 MG TABCR PO SCH (07:54)
[2022-05-11] MEDS: RANOLAZINE 500 MG ER TAB PO SCH ×2 (07:54→20:49)
[2022-05-11] MEDS: carvediloL 25 MG TAB PO SCH ×2 (07:54→20:49)
[2022-05-11 08:18] LABS: BUN Creatinine Ratio 47.1 (10-20); Calcium 8.9 mg/dl (8.5-10.1); Creatinine Clr Calc Pharmacy 42.4 ml/min; Est GFR (African American) 37.8 ml/min; Est GFR (Non-African American) 32.6 ml/min; Troponin I High Sensitivity 61.3 pg/ml (0-20)
[2022-05-11] MEDS ORDERED: INSULIN HUMAN NPH SC ONE (09:00)
--- NOTE | 2022-05-11 10:46 | Ultrasound Report ---
US renal/blad retro comp CLINICAL HISTORY: 1.4cm hyperdense lesion on inferior pole left kidn TECHNIQUE: Multiple sonographic real-time images of the kidneys and bladder were obtained. COMPARISON: Comparison is made to CT abdomen pelvis 05/10/2022 FINDINGS: The right kidney measures 10.9 cm in length, and the left kidney measures 12.2 cm in length. The right kidney is normal in size, contour, cortical thickness, and echogenicity. No hydronephrosis is identified. No renal lesion is identified. No perinephric fluid collection is seen. The left kidney is normal in size, contour, cortical thickness and echogenicity. No hydronephrosis i s identified. An exophytic hypodensity in the left kidney inferior pole is compatible with a cyst. Trace free fluid is seen about the left kidney. The bladder is partially distended. No large intraluminal mass is seen. IMPRESSION: Exophytic cyst is in the left inferior pole, possibly with proteinaceous/hemorrhagic component. ACT 112: Negative or not required by law. Electronically signed by: Juan Luis Rolon M.D. 05/11/2022 10:44 AM
--- NOTE | 2022-05-11 15:51 | Hospitalist Progress Note ---
Date of Service May 11, 2022 Assessment & Plan (1) Dental abscess: Plan: Suspect cause of leukocytosis which is improving on Unasyn. No abscess seen on facial CT although two pockets appear to need draining on exam. Consult ENT - discussed with Dr Wang and planning on draining once off Eliquis for 48 hours on Sunday morning (2) Acute on chronic kidney failure: Plan: - Cr 2.30, BUN 102, hard to say what his baseline Cr function is. It was 1.27 at the beginning of the year, prior labs are > 1 year old, was 1.4-2.0 then. - CT A/P without obstruction however 1.4cm hyperdense lesion recommending non- emergent renal US follow up - US renal - Exophytic cyst - Holding Lasix and gentle IV fluids given on admission. Appears euvolemic today. - Suspect ANCELMO in setting of infection and hypotension. However given lack of improvement in Cr and BUN will consult nephrology. He does not appear to be having uremic symptoms although this may be contributing towards his falls. (3) Hyponatremia: Plan: Resolved mainly with treatment of hyperglycemia HbA1C 12.6 (4) Leukocytosis: Plan: Unfortunately no blood cultures taken on admission. Good source with dental abscess as above however and improving on Unasyn which appears appropriate. (5) Hyperkalemia: Plan: - 5.8 on admission, resolved with holding lisinopril and KCl. Suspect secondary to ANCELMO above. Continue to trend daily. (6) Elevated troponin: Plan: Stable elevation. Suspect demand-ischemia in setting of relative hypotension TTE - LVEF 40-45%, actually improved from prior. No wall motion abnormalities (7) Hyperglycemia: Plan: HbA1C 12.6 Appreciate pharmacy glycemic consult (8) Diabetes mellitus: Plan: As above (9) Frequent falls: Plan: - Can be multifactorial due to multiple meds hat may contribute--clonazepam, tramadol, hyponatremia uremia, hypotension on lisinopril - Will re-evaluate following dental abscess managment (10) Permanent atrial fibrillation: Plan: - Permanent, asymptomatic, remains rate controlled with carvedilol. - Eliquis on hold due to dental abscess management (11) Ischemic cardiomyopathy: Plan: - Has AICD. - Echo 04/10/22: EF 35-40%, mild global hypokinesis and mild LVH. - Continue carvedilol, hold lisinopril for now (ANCELMO, hyper K). (12) Chronic systolic congestive heart failure: Plan: - Holding Lasix for ANCELMO but would restart if he's becoming overloaded with IVF running for ANCELMO. - Continue carvedilol. - Low sodium/DM diet. - Strict I/Os - UO not being measured - Daily weights. (13) Depression: Plan: - Could consider holding paroxetine for tomorrow given it can potentially contribute to hyponatremia but NA only slightly loq (131 corrected for glucose 400s), more likely low sodium is due to poor po intake. - Holding Clonazepam if able, patient has been on this qHS for awhile, do not want to cause withdrawal but may be contributing to falls. (14) Thrombocytopenia: Plan: Unclear cause of this but appears to be stable. Recommend outpatient heme follow up. ?early cirrhosis noted on Ct A/P Plan - Admit to PCU. - SCDS, Eliquis on hold as above - Full Code. Admission and Anticipated Discharge Date Admission Date: May 09, 2022 Subjective No urinary complaints. No flank pain. No fever or chills. His main complaint is his mouth pain which he feels has been ignored. He reports not being able to eat due to severe pain only mildly helped by Percocets around his bottom teeth on both sides. Review of Systems Review of Systems: All systems reviewed & are unremarkable except as noted in Subjective Physical Exam Constitutional: well developed and + disheveled; + not well nourished and no acute distress Eyes: PERRL, conjunctivae normal, anicteric sclerae ENMT: Mouth: + dry oral mucous membranes, + malodorous breath and + gingival abnormality (pus filled tender pocket anterior/inferior to 22 and 27) Respiratory: normal respiratory effort, lungs clear to auscultation Cardiovascular: Rate/Rhythm: regular rate and regular rhythm Heart Sounds: no murmur Extremities: normal capillary refill and + pedal edema (1 + b/l ankles pitting) Gastrointestinal (Abdomen): normal bowel sounds, soft, nontender, no hepatosplenomegaly Musculoskeletal: no cyanosis or clubbing, extremities motor strength 5/5 Skin: no rashes, warm and dry Neurologic: moves all extremities and awake; not confused Psychiatric: A+Ox3, euthymic affect Genitourinary: no CVA tenderness Results & Data Results & Data ([facility]) Vital Signs (Past 12 Hours) Vital Signs Temp Pulse Pulse Resp BP Pulse Ox O2 Del Method 05/11/22 15:43 36.7 C 78 20 112/71 94 Room Air 05/11/22 11:54 36.9 C 79 18 98/58 L 99 Room Air 05/11/22 11:48 100 H 05/11/22 08:00 Room Air 05/11/22 07:50 36.6 C 90 18 112/76 99 PG Care Time/CCT Total # of Minutes Spent Total Time Spent with Patient: Total time spent is greater than 50% in coordination of care (as documented) at patient's floor/unit and/or counseling patient: Coding Level of Care Code 93925 Subseq Hosp Care Lvl 3 Diagnoses Dental abscess K04.7 Acute on chronic kidney failure N17.9; N18.9 Hyponatremia E87.1 Leukocytosis D72.829 Hyperkalemia E87.5 Elevated troponin R77.8 Hyperglycemia R73.9 Diabetes mellitus E11.9 Frequent falls R29.6 Permanent atrial fibrillation I48.2 Ischemic cardiomyopathy I25.5 Chronic systolic congestive heart failure I50.22 Depression F32.9 Thrombocytopenia D69.6
[2022-05-11] MEDS: PARoxetine HCL 10 MG TAB PO SCH (16:54)
[2022-05-11] MEDS: INSULIN HUMAN NPH SC SCH (16:55)
--- NOTE | 2022-05-11 18:00 | Oral/Maxillofacial Consult ---
Date of Consultation May 11, 2022 Assessment & Plan (1) Injury of jaw: (2) Dental abscess: (3) Infection of submental space: History of Present Illness Attending Physician: Ishan Nassar MD History of Present Illness Oral Maxillofacial Surgery Exam--jaw pain from recent fall Present Complaint: I have pain/swelling/drainage from my right jaw and under my chin Symptoms have been ongoing for a while-- and not getting any better Went to his dentist --was told not related to his teeth or from a fractured jaw. Was referred to my office but came to ER on May 09. I saw Mr Craig this afternoon he has acute swelling lower right chin and submental area with pointing intraorally in right mucobuccal fold. The submental area is tender, hard secondary to the infection. Oral Exam: Finding-swollen chin and Muco buccal fold right site Looks to be soft tissue infection . Infection from recent blunt trama and intraoral laceration which got infected Imaging: completed in Dr Acosta`s office Panorex: The Panorex X Ray was reviewed, there were no abnormal findings No carious or fractured teeth . The TMJ are well positioned and no evidence of bony pathology. The sinus, supporting bone all WNL CLINICAL HISTORY: Trauma. FINDINGS: Suspected contusion of the chin is noted. No acute mandibular fracture is noted. Alignment of the temporomandibular joints is anatomic. Multiple teeth are absent. No acute facial fracture is identified. Globes are intact. There is no retrobulbar hematoma. No skull base fracture is present. IMPRESSION: 1. No acute facial fracture. 2. Left inferior facial/chin contusion. Soft tissue: Acute Muco buccal fold swelling, right submental swelling infection from recent facial injury (fall) The floor of the mouth, tongue, hard/soft palate, posterior pharyngeal area all with in normal limits, Oral Care: Overall oral care is fair Occlusion: Class I with missing teeth TMJ exam: No pop, clicking, pain, good ROM, No history of TMJ injury or dysfunction Head/Neck exam: Neck is supple, swelling right chin and muco buccal fold no airway issues, ? evidence of sleep apnea very thick neck Pain prevents him from movement and oral intake. Treatment Plan: Will need I&D of the submental and Muco Buccal fold Set up with general anesthesia in hospital due to complexity of the procedure I reviewed the treatment plan and consent with the patient. We will need to stop the Eliquis 48 hours then preform the I and D Understanding was expressed. Time was given for questions regarding the surgery, risks and post op care. Discussed alternative to treatment--procedure as planned, Do not do surgery Risks discussed: Bleeding,Pain,swelling,infection, delayed healing, nerve injury to face,lips,tongue,chin area which could be permanent (rare). TMJ, jaw stiffness, change in bite (rare), ear pain (referred). Sinus problems like fistula or infection. Surgery to be set up once I discuss the case with Hospital medicine for clearance and allow 48 hours after stop the Eliquis. The Eliquis will need to be stopped due to the fact that I need to drain the submental, anterior neck and intraoral infection Allergies Allergy/AdvReac Type Severity Reaction Status Date / Time diphenhydramine AdvReac Unknown hallucinati Verified 05/09/22 20:11 on Home Medications Medication Instructions Recorded Confirmed Type acetaminophen 500 mg tablet 500 mg PO Q6H PRN Pain 11/21/18 05/09/22 History (Tylenol Extra Strength) blood sugar diagnostic (OneTouch #200 ea 01/10/21 05/09/22 Rx Verio test strips) lancets 33 gauge (OneTouch Delica #200 ea 01/10/21 05/09/22 Rx Lancets) nitroglycerin 0.4 mg sublingual 0.4 mg sublingual Q5M PRN chest 06/24/21 05/09/22 Rx tablet (Nitrostat) pain #25 tabs apixaban 5 mg tablet (Eliquis) 5 mg PO BID #180 tabs 08/31/21 05/09/22 Rx carvedilol 25 mg tablet 25 mg PO BID #180 tabs 09/12/21 05/09/22 Rx isosorbide mononitrate 120 mg 120 mg PO QAM #90 tabs 09/29/21 05/09/22 Rx tablet,extended release 24 hr insulin human U-100 NPH-regulr See Rx Instructions subcut BIDM 12/22/21 05/09/22 Rx 70-30 mix 100 unit/mL subcutaneous #50 mL susp (Humulin 70/30 U-100 Insulin) atorvastatin 80 mg tablet 80 mg PO HS #90 tabs 12/26/21 05/09/22 Rx furosemide 40 mg tablet (Lasix) 40 mg PO BID #190 tabs 01/20/22 05/09/22 Rx clonazepam 0.5 mg tablet 0.5 mg PO DAILY #30 tabs 02/09/22 05/09/22 Rx paroxetine HCl 10 mg tablet 10 mg PO QAM #90 tabs 03/08/22 05/09/22 Rx lisinopril 40 mg tablet 40 mg PO QAM #90 tabs 03/29/22 05/09/22 Rx potassium chloride 20 mEq 20 meq PO BID #180 tabs 03/29/22 05/09/22 Rx tablet,extended release(part/cryst) (Klor-Con M) insulin syringe-needle U-100 0.5 #100 ea 04/07/22 05/09/22 Rx mL 31 gauge x 5/16" (BD Insulin Syringe Ultra-Fine) ranolazine 1,000 mg 1,000 mg PO BID #90 tabs 04/10/22 05/09/22 Rx tablet,extended release,12 hr tramadol 50 mg tablet 50 mg PO Q8H PRN pain #30 tabs 04/19/22 05/09/22 Rx methylprednisolone 4 mg tablets in See Rx Instructions .Route 05/03/22 05/09/22 Rx a dose pack (Medrol (Paul)) .COMPLEX #21 ea Patient History Medical History (Updated 05/13/22 @ 09:02 by Sekou Wang DMD) Anticoagulant long-term use CAD in [place] artery CHF (congestive heart failure) Chronic systolic congestive heart failure Depression Diabetes mellitus (10/30/12) Dyslipidemia Hypertension Ischemic cardiomyopathy Permanent atrial fibrillation Pneumonia Thrombocytopenia Surgical History Hx of CABG S/P implantation of automatic cardioverter/defibrillator (AICD) Family History Father Patient's father is Father FH: CABG (coronary artery bypass surgery) CABG Myocardial infarction Sister COPD (chronic obstructive pulmonary disease) Denies family history of Ovarian cancer Prostate cancer Breast cancer Colorectal cancer Stroke Social History Smoking Status: Never smoker Second Hand Exposure: No; Hx Alcohol Use: Yes Hx Substance Use: No Preferred Language: [place] Communication Ability: Effective Visual Impairment: No Limitations Hearing Ability: Normal Special Needs Librarian Required: No Beliefs That Will Affect Care: None marital status: Single Current Living Situation: Family Current Living Situation Comment: Lives with daughter current occupational status: retired Feels Safe at Home: Yes Childhood Exposure to Second-Hand Smoke: Yes (everyone) Dental Care, Regularly: No Physical Activity Frequency: Does not Exercise Seatbelt Use: always Sunscreen Use: No Assistive Devices: Cane Results & Data ([facility]) Vital Signs (Past 12 Hours) Vital Signs Temp Pulse Pulse Resp BP Pulse Ox O2 Del Method 05/11/22 14:19 93 H 05/11/22 15:43 36.7 C 78 20 112/71 94 Room Air 05/11/22 11:54 36.9 C 79 18 98/58 L 99 Room Air 05/11/22 06:00 100 H 05/11/22 08:00 Room Air 05/11/22 07:50 36.6 C 90 18 112/76 99 PG Care Time/CCT Total # of Minutes Spent Total Time Spent with Patient: Total time spent is greater than 50% in coordination of care (as documented) at patient's floor/unit and/or counseling patient: Coding Level of Care Code 81217 Initial Inpt Care Lvl 2 Diagnoses Injury of jaw S09.93XA Dental abscess K04.7 Infection of submental space K12.2
[2022-05-11] MEDS: ATORVASTATIN 40 MG TAB PO SCH (20:49)
[2022-05-12] MEDS: AMPICILLIN/SULBACTAM SOD 3,000 MG in 0.9 % SODIUM CHLORIDE 100 ML IV SCH ×3 (08:00→20:19)
--- NOTE | 2022-05-12 08:44 | Nephrology Consultation ---
Date of Consultation May 12, 2022 Assessment & Plan (1) Acute kidney injury: * ANCELMO due to dehydration. Patient remains clinically volume contracted. Urine sediment is acellular, urinalysis is nonnephritic. Renal US is negative for obstruction. Cr has improved to 1.68 this am * Hold furosemide * Continue cautious hydration due to ICM * Consider restarting furosemide and lisinopril once Cr < 1.6 * Monitor PRP * No further Nephrology evaluation indicated at this time. Will sign off. Please call if further assistance is needed (2) CKD (chronic kidney disease): * CKD stage G3b/A1 (moderate impairment). Baseline Cr has been 1.3 - 1.6 w/ EGFR 44 cc/min. Urine sediment has been acellular. Urine microalbumin has been mildly elevated at 53.6. Renal US 05/11/22 revealed R kidney 10.9 cm, L kidney 12.2 cm. There was no hydronephrosis but a small exophytic hemorrhagic cyst was reported within the inferior pole of the L kidney (3) Injury of jaw: * 05/09/[address] - negative for fracture (4) Frequent falls: * Needs PT/OT evaluation * Question if related to diabetic neuropathy * On anticoagulation due to ICM - need to assess benefits v. risk due to recurrent falls (5) Ischemic cardiomyopathy: * AICD in place History of Present Illness Reason for Consultation: ANCELMO/CKD Attending Physician: Ishan Nassar MD History of Present Illness Mr. Craig is a 67 year old white male who is seen at the request of [facility] Hospitalist Service for evaluation of ANCELMO/CKD. Medical records in the EMR were reviewed today and are summarized as follows: Mr. Craig has CKD stage G3b/A1 (moderate impairment). Baseline Cr has been 1.3 - 1.6 w/ EGFR 44 cc/min. Urine sediment has been acellular. Urine microalbumin has been mildly elevated at 53.6. Renal US 05/11/22 revealed R kidney 10.9 cm, L kidney 12.2 cm. There was no hydronephrosis but a small exophytic hemorrhagic cyst was reported within the inferior pole of the L kidney. Mr. Craig's medical history is also significant for ASCVD s/p CABG, HFrEF, ischemic cardiomyopathy s/p AICD, permanent A. fib, DM2 on insulin, hypertension, dyslipidemia and thrombocytopenia. Mr. Craig reports several recent mechanical falls. Most recently he fell and injured his jaw. As a result he has had poor oral intake. Mr. Craig presented to the [facility] EMD 05/09/22 for evaluation of weakness and dehydration. Laboratory studies revealed ANCELMO/CKD w/ Cr 2.3, K 5.8, Na 126, glucose 408. He was admitted to the hospitalist service for IV hydration, insulin and ongoing medical management. Since admission Mr. Craig has received 4 L IVF. His UO has not been recorded. He reports that he is voiding without difficulty. He denies the regular use of NSAIDS, herbal supplements or known nephrotoxic agents at home. Allergies Allergy/AdvReac Type Severity Reaction Status Date / Time diphenhydramine AdvReac Unknown hallucinati Verified 05/09/22 20:11 on Home Medications Medication Instructions Recorded Confirmed Type acetaminophen 500 mg tablet 500 mg PO Q6H PRN Pain 11/21/18 05/09/22 History (Tylenol Extra Strength) blood sugar diagnostic (RunteqTouch #200 ea 01/10/21 05/09/22 Rx Verio test strips) lancets 33 gauge (OneTouch Delica #200 ea 01/10/21 05/09/22 Rx Lancets) nitroglycerin 0.4 mg sublingual 0.4 mg sublingual Q5M PRN chest 06/24/21 05/09/22 Rx tablet (Nitrostat) pain #25 tabs apixaban 5 mg tablet (Eliquis) 5 mg PO BID #180 tabs 08/31/21 05/09/22 Rx carvedilol 25 mg tablet 25 mg PO BID #180 tabs 09/12/21 05/09/22 Rx isosorbide mononitrate 120 mg 120 mg PO QAM #90 tabs 09/29/21 05/09/22 Rx tablet,extended release 24 hr insulin human U-100 NPH-regulr See Rx Instructions subcut BIDM 12/22/21 05/09/22 Rx 70-30 mix 100 unit/mL subcutaneous #50 mL susp (Humulin 70/30 U-100 Insulin) atorvastatin 80 mg tablet 80 mg PO HS #90 tabs 12/26/21 05/09/22 Rx furosemide 40 mg tablet (Lasix) 40 mg PO BID #190 tabs 01/20/22 05/09/22 Rx clonazepam 0.5 mg tablet 0.5 mg PO DAILY #30 tabs 02/09/22 05/09/22 Rx paroxetine HCl 10 mg tablet 10 mg PO QAM #90 tabs 03/08/22 05/09/22 Rx lisinopril 40 mg tablet 40 mg PO QAM #90 tabs 03/29/22 05/09/22 Rx potassium chloride 20 mEq 20 meq PO BID #180 tabs 03/29/22 05/09/22 Rx tablet,extended release(part/cryst) (Klor-Con M) insulin syringe-needle U-100 0.5 #100 ea 04/07/22 05/09/22 Rx mL 31 gauge x 5/16" (BD Insulin Syringe Ultra-Fine) ranolazine 1,000 mg 1,000 mg PO BID #90 tabs 04/10/22 05/09/22 Rx tablet,extended release,12 hr tramadol 50 mg tablet 50 mg PO Q8H PRN pain #30 tabs 04/19/22 05/09/22 Rx methylprednisolone 4 mg tablets in See Rx Instructions .Route 05/03/22 05/09/22 Rx a dose pack (Medrol (Paul)) .COMPLEX #21 ea Patient History Medical History (Updated 05/12/22 @ 12:26 by Sea Marx MD) Anticoagulant long-term use CAD in [place] artery CHF (congestive heart failure) Chronic systolic congestive heart failure Depression Diabetes mellitus (10/30/12) Dyslipidemia Hypertension Ischemic cardiomyopathy Permanent atrial fibrillation Pneumonia Thrombocytopenia Surgical History Hx of CABG S/P implantation of automatic cardioverter/defibrillator (AICD) Family History Father Patient's father is Father FH: CABG (coronary artery bypass surgery) CABG Myocardial infarction Sister COPD (chronic obstructive pulmonary disease) Denies family history of Ovarian cancer Prostate cancer Breast cancer Colorectal cancer Stroke Social History Smoking Status: Never smoker Second Hand Exposure: No; Hx Alcohol Use: Yes Hx Substance Use: No Preferred Language: Bel[place]ian Communication Ability: Effective Visual Impairment: No Limitations Hearing Ability: Normal Wood Scrap Handler Required: No Beliefs That Will Affect Care: None marital status: Single Current Living Situation: Family Current Living Situation Comment: Lives with daughter current occupational status: retired Feels Safe at Home: Yes Childhood Exposure to Second-Hand Smoke: Yes (everyone) Dental Care, Regularly: No Physical Activity Frequency: Does not Exercise Seatbelt Use: always Sunscreen Use: No Assistive Devices: Cane Review of Systems Constitutional: no fever Eyes: no problem reported Ear, Nose, Mouth, Throat: jaw pain making if difficult to eat and drink Respiratory: no cough and no dyspnea Cardiovascular: no chest pain Gastrointestinal: no abdominal pain, no nausea and no vomiting Genitourinary: no dysuria or no urinary hesitancy Neurologic: + falls Physical Exam Constitutional: not in distress Eyes: PERRL, conjunctivae normal, anicteric sclerae ENMT: external ear and nose normal, oropharynx normal Neck: trachea midline, no thyromegaly Respiratory: normal respiratory effort, lungs clear to auscultation Cardiovascular: RRR, no murmur, no edema Gastrointestinal (Abdomen): normal bowel sounds, soft, nontender, no hepatosplenomegaly Skin: + turgor decreased Neurologic: awake; not confused Results & Data ([facility]) Vital Signs (Past 12 Hours) Vital Signs Temp Pulse Pulse Pulse Resp BP Pulse Ox 05/12/22 07:29 36.6 C 99 H 18 151/94 H 98 05/12/22 02:18 36.9 C 84 18 95/56 L 95 05/11/22 23:00 83 05/11/22 22:13 37.3 C 88 18 101/62 96 O2 Del Method 05/12/22 07:29 Room Air 05/12/22 02:18 Room Air 05/11/22 23:00 05/11/22 22:13 Room Air Laboratory Results Laboratory Tests 03/09/21 10/04/21 05/09/22 10:20 09:15 16:18 WBC Hgb Hct Plt Count Sodium Potassium Chloride Carbon Dioxide BUN Creatinine 1.27 2.30 H POC Glucose Calcium Total Creatine Kinase Ur Specific [place] Urine Protein Urine Glucose (UA) Urine Blood Urine Nitrite Ur Leukocyte Esterase Ur Random Creatinine 110.0 Ur Random Sodium Microalb/Creat Ratio 53.6 H 05/09/22 05/09/22 05/11/22 20:07 20:07 07:32 WBC 12.98 H Hgb 14.1 Hct 41.2 Plt Count 77 L Sodium Potassium Chloride Carbon Dioxide BUN Creatinine POC Glucose Calcium Total Creatine Kinase Ur Specific [place] 1.022 Urine Protein Negative Urine Glucose (UA) 3+ H Urine Blood Negative Urine Nitrite Negative Ur Leukocyte Esterase Negative Ur Random Creatinine Ur Random Sodium 18 Microalb/Creat Ratio 05/11/22 05/12/22 05/12/22 07:32 07:43 07:43 WBC Hgb Hct Plt Count Sodium 133 L Potassium 5.2 H Chloride 102 Carbon Dioxide 25 BUN 76 H D Creatinine 2.06 H 1.68 H D POC Glucose 167 H Calcium 8.8 Total Creatine Kinase 102 Ur Specific [place] Urine Protein Urine Glucose (UA) Urine Blood Urine Nitrite Ur Leukocyte Esterase Ur Random Creatinine Ur Random Sodium Microalb/Creat Ratio Diagnostic Findings 05/11/22 Renal US: R kidney 10.9 cm, L kidney 12.2 cm in length. No hydronephrosis. An exophytic hypodensity in the left kidney inferior pole is compatible with a cyst. Trace free fluid is seen about the left kidney. The bladder is partially distended. No large intraluminal mass is seen. PG Care Time/CCT Total # of Minutes Spent Total Time Spent with Patient: Total time spent is greater than 50% in coordination of care (as documented) at patient's floor/unit and/or counseling patient: Coding Level of Care Code 81171 Inpt Consult Level 5 Diagnoses Acute kidney injury N17.9 CKD (chronic kidney disease) N18.9 Injury of jaw S09.93XA Frequent falls R29.6 Ischemic cardiomyopathy I25.5
[2022-05-12] MEDS ORDERED: INSULIN HUMAN NPH SC ONE (09:00)
[2022-05-12 09:02] LABS: BUN Creatinine Ratio 45.2 (10-20); Calcium 8.8 mg/dl (8.5-10.1); Creatinine Clr Calc Pharmacy 52.2 ml/min; Est GFR (African American) 48.3 ml/min; Est GFR (Non-African American) 41.7 ml/min; Potassium 5.2 mmol/L (3.5-5.1)
[2022-05-12] MEDS: carvediloL 25 MG TAB PO SCH ×2 (09:10→20:19)
[2022-05-12] MEDS: INSULIN ASPART PER UNIT SC SCH ×4 (09:10→20:25)
[2022-05-12] MEDS: ISOSORBIDE MONO EXTENDED REL 60 MG TABCR PO SCH (09:11)
[2022-05-12] MEDS: RANOLAZINE 500 MG ER TAB PO SCH ×2 (09:11→20:19)
[2022-05-12] MEDS: PARoxetine HCL 10 MG TAB PO SCH (09:11)
--- NOTE | 2022-05-12 13:40 | Pharmacy Report ---
Pharmacy Glycemic Short Note 2 - Date of Service May 12, 2022 - Glycemic Short BSG Results (Last 24 hours): 05/11/22 05/11/22 05/12/22 16:36 20:29 07:43 Glucose 178 H POC Glucose 279 H 238 H 05/12/22 05/12/22 07:43 11:21 Glucose POC Glucose 167 H 190 H OUTPATIENT ANTIDIABETIC REGIMEN: * Novolin 70/30 32 units in the morning and 14 units in the evening * HbA1C = 12.6% (05/10/22) ASSESSMENT: * Patient's BSG yesterday were [phone] mg/dL. Patient's fasting BSG today was 167 mg/dL. * Patient received 65 units of insulin yesterday (28 units of basal and 37 units of bolus). * Will increase breakfast NPH by 20% to 22 units as BSGs elevated later in the day. * Tighten Novolog. BACKGROUND * Mr Craig is a 67 y/o M with a PMH of T2DM who presents with a fall. * Admitting BSG was 408 mg/dL for which the patient received 10 units of IV insulin. * Overnight the patient's BSGs were 263-217 mg/dL and patient received 9 units of Novolog. * Fasting BSG was 234 mg/dL. * Per previous admission, patient did well with his home regimen. * Start NPH 20 units in morning and 10 units at dinner (approximately 70% of home regimen) plus Novolog weight-based stress of 2. * Overnight checks to establish true basal needs. PLAN FOR INPATIENT GLYCEMIC CONTROL: * Hold outpatient oral diabetes medications * Basal insulin * NPH 22 units SQ in morning then 10 units at dinner * Bolus insulin * NovoLog per scale ACHS or Q6hrs while NPO * Goal Range: Low 110 mg/dL - High 140 mg/dL * Correction Factor: 12 mg/dL/unit * Nutritional / Prandial insulin per carb ratio of 1 unit per 3 grams CHO consumed
[2022-05-12] MEDS: oxyCODONE/ACETAMINOPHEN 5mg/325mg TAB PO PRN (16:52)
[2022-05-12] MEDS: INSULIN HUMAN NPH SC SCH (16:55)
[2022-05-12] MEDS: ATORVASTATIN 40 MG TAB PO SCH (20:19)
--- NOTE | 2022-05-12 22:53 | Hospitalist Progress Note ---
Date of Service May 12, 2022 Assessment & Plan (1) Dental abscess: Plan: Suspect cause of leukocytosis which is improving on Unasyn. No abscess seen on facial CT although two pockets appear to need draining on exam. Consulted ENT - discussed with Dr Wang and planning on draining once off Eliquis for 48 hours on Sunday morning (2) Acute on chronic kidney failure: Plan: - Cr 2.30, BUN 102, hard to say what his baseline Cr function is. It was 1.27 at the beginning of the year, prior labs are > 1 year old, was 1.4-2.0 then. - CT A/P without obstruction however 1.4cm hyperdense lesion recommending non- emergent renal US follow up - US renal - Exophytic cyst - Holding Lasix and gentle IV fluids given on admission. Appears euvolemic today. - Suspect ANCELMO in setting of infection and hypotension. - Appreciate nephrology consult. Cr/BUN now improving with continuing to hold Lasix. (3) Hyponatremia: Plan: Resolved mainly with treatment of hyperglycemia HbA1C 12.6 (4) Leukocytosis: Plan: Unfortunately no blood cultures taken on admission. Good source with dental abscess as above however and improving on Unasyn which appears appropriate. (5) Hyperkalemia: Plan: - 5.8 on admission, resolved with holding lisinopril and KCl. Suspect secondary to ANCELMO above. 5.2 on labs this morning, should improve with renal function but if not will give Kayexalate. Continue to trend daily. (6) Elevated troponin: Plan: Stable elevation. Suspect demand-ischemia in setting of relative hypotension TTE - LVEF 40-45%, actually improved from prior. No wall motion abnormalities (7) Hyperglycemia: Plan: HbA1C 12.6 Appreciate pharmacy glycemic consult (8) Diabetes mellitus: Plan: As above (9) Frequent falls: Plan: - Can be multifactorial due to multiple meds hat may contribute--clonazepam, tramadol, hyponatremia uremia, hypotension on lisinopril - Will re-evaluate following dental abscess management (10) Permanent atrial fibrillation: Plan: - Permanent, asymptomatic, remains rate controlled with carvedilol. - Eliquis on hold due to dental abscess management (11) Ischemic cardiomyopathy: Plan: - Has AICD. - Echo 04/10/22: EF 35-40%, mild global hypokinesis and mild LVH. - Continue carvedilol, hold lisinopril for now (ANCELMO, hyper K). (12) Chronic systolic congestive heart failure: Plan: - Holding Lasix for ANCELMO, likely need to restart in next 1-2 days as Cr improves - Continue carvedilol. - Low sodium/DM diet. - Strict I/Os - UO not being measured - Daily weights. (13) Depression: Plan: - Restarted on paroxetine 10mg PO daily to avoid withdrawal - Holding Clonazepam if able, patient has been on this qHS for awhile, do not want to cause withdrawal but may be contributing to falls. (14) Thrombocytopenia: Plan: Unclear cause of this but appears to be stable. Recommend outpatient heme follow up. ?early cirrhosis noted on Ct A/P Plan - Admit to PCU. - SCDS, Eliquis on hold as above - Full Code. Admission and Anticipated Discharge Date Admission Date: May 09, 2022 Subjective No acute change in symptoms. Still finding it difficult to eat with abscess - does not wish to change diet. Planning on I&D on Sunday. Cr improving. No urinary symptoms. No fever or chills. Review of Systems Review of Systems: All systems reviewed & are unremarkable except as noted in Subjective Physical Exam Constitutional: well developed and + disheveled; + not well nourished and no acute distress ENMT: Mouth: + dry oral mucous membranes, + malodorous breath and + gingival abnormality (pus filled tender pocket anterior/inferior to 22 and 27) Respiratory: normal respiratory effort, lungs clear to auscultation Cardiovascular: Rate/Rhythm: regular rate and regular rhythm Heart Sounds: no murmur Extremities: normal capillary refill and + pedal edema (1 + b/l ankles pitting) Gastrointestinal (Abdomen): normal bowel sounds, soft, nontender, no hepatosplenomegaly Musculoskeletal: no cyanosis or clubbing, extremities motor strength 5/5 Skin: no rashes, warm and dry Neurologic: moves all extremities and awake; not confused Psychiatric: A+Ox3, euthymic affect Genitourinary: no CVA tenderness Results & Data Results & Data ([facility]) Vital Signs (Past 12 Hours) Vital Signs Temp Pulse Pulse Resp BP BP Pulse Ox 05/12/22 22:24 36.7 C 74 16 105/69 94 05/12/22 19:25 36.8 C 83 17 126/86 98 05/12/22 15:59 37 C 91 H 16 148/90 H 97 05/12/22 14:00 90 05/12/22 11:22 36.5 C 80 20 125/73 96 O2 Del Method 05/12/22 22:24 Room Air 05/12/22 19:25 Room Air 05/12/22 15:59 Room Air 05/12/22 14:00 05/12/22 11:22 Room Air PG Care Time/CCT Total # of Minutes Spent Total Time Spent with Patient: Total time spent is greater than 50% in coordination of care (as documented) at patient's floor/unit and/or counseling patient: Coding Level of Care Code 25600 Subseq Hosp Care Lvl 2 Diagnoses Dental abscess K04.7 Acute on chronic kidney failure N17.9; N18.9 Hyponatremia E87.1 Leukocytosis D72.829 Hyperkalemia E87.5 Elevated troponin R77.8 Hyperglycemia R73.9 Diabetes mellitus E11.9 Frequent falls R29.6 Permanent atrial fibrillation I48.2 Ischemic cardiomyopathy I25.5 Chronic systolic congestive heart failure I50.22 Depression F32.9 Thrombocytopenia D69.6
[2022-05-13] MEDS: AMPICILLIN/SULBACTAM SOD 3,000 MG in 0.9 % SODIUM CHLORIDE 100 ML IV SCH ×4 (02:29→20:06)
[2022-05-13] MEDS: oxyCODONE/ACETAMINOPHEN 5mg/325mg TAB PO PRN ×2 (02:29→08:18)
[2022-05-13 07:50] LABS: BUN Creatinine Ratio 38.6 (10-20); Calcium 8.7 mg/dl (8.5-10.1); Creatinine Clr Calc Pharmacy 63.5 ml/min; Est GFR (African American) 60.3 ml/min; Potassium 5.2 mmol/L (3.5-5.1)
[2022-05-13] MEDS: carvediloL 25 MG TAB PO SCH ×2 (08:19→20:07)
[2022-05-13] MEDS: ISOSORBIDE MONO EXTENDED REL 60 MG TABCR PO SCH (08:19)
[2022-05-13] MEDS: RANOLAZINE 500 MG ER TAB PO SCH ×2 (08:19→20:07)
[2022-05-13] MEDS: PARoxetine HCL 10 MG TAB PO SCH (08:19)
[2022-05-13] MEDS: INSULIN HUMAN NPH SC SCH ×2 (08:25→17:18)
[2022-05-13] MEDS: INSULIN ASPART PER UNIT SC SCH ×4 (08:25→20:07)
--- NOTE | 2022-05-13 09:10 | Oral/Maxillofacial Progress Nt ---
Date of Service May 13, 2022 Assessment & Plan Admission and Anticipated Discharge Date Admission Date: May 09, 2022 Subjective THE SWELLING IS GETTING WORSE. The infection now involves the submental area (right and left sides) He will be off the Xarelto for 48 tonight so we will plan the extra oral I and D Sunday AM NPO this evening I will order another CT scan to access the extension of the infection and to make sure it is not from any dental etiology. My impression is that as a result of the facial trauma he injured the oral mucosa and this got infected causing the present issues. PLAN --I and D Sunday Results & Data ([facility]) Vital Signs (Past 12 Hours) Vital Signs Temp Pulse Resp BP Pulse Ox O2 Del Method 05/13/22 04:26 37.0 C 93 H 20 108/63 96 Room Air 05/12/22 22:24 36.7 C 74 16 105/69 94 Room Air PG Care Time/CCT Total # of Minutes Spent Total Time Spent with Patient: Total time spent is greater than 50% in coordination of care (as documented) at patient's floor/unit and/or counseling patient: Coding Level of Care Code None
[2022-05-13] MEDS ORDERED: SODIUM POLYSTYRENE SULFONATE 15G/60ML SUSP PO STA (10:06)
--- NOTE | 2022-05-13 10:14 | CT Scan Report ---
MAXILLOFACIAL CT CT DOSE: 1498.00 mGy.cm HISTORY: increased swelling submental area TECHNIQUE: Multiaxial CT images of the maxillofacial region were performed and reformatted in the cor onal plane without the use of contrast. A dose lowering technique was utilized adhering to the princ iplyara of JOHANNY. COMPARISON: CT facial bones 05/09/2022. FINDINGS: There is a skin marker within the right anterior neck/chin. Deep to the skin marker there i s a 2.8 x 1.2 cm heterogeneous subcutaneous collection. This favors a small soft tissue hematoma. A d eveloping abscess could also have a similar appearance but is considered less likely given the recent trauma This is located within the subcutaneous soft tissues/platysma. There is overlying soft tissue swelling. The skin thickening/subcutaneous edema within the anterior neck has slightly progressed. T he visualized brain parenchyma and orbits are unremarkable. The submandibular glands are symmetric. S mall foci of subcutaneous gas within the right lower lip best seen on coronal image 23 and axial imag e 135. No associated fluid. This could represent a small laceration. No cervical lymphadenopathy. Pre vertebral soft tissues and the epiglottis are normal in thickness. Mild motion artifact at the mandib le. However, no definite fractures identified. Mild mucosal thickening within the right maxillary sin us. Scattered dental caries are noted. No significant periapical lucency within the remaining teeth. IMPRESSION: 1. There is a skin marker within the right anterior neck/chin. Deep to the skin marker there is a 2.8 x 1.2 cm heterogeneous subcutaneous collection. This favors a small soft tissue hematoma. A developi ng abscess could also have a similar appearance but is considered less likely given the recent trauma 2. Small foci of gas within the right lower lip as described above. No associated fluid. This could r epresent a small laceration. 3.The skin thickening/subcutaneous edema within the anterior neck has slightly progressed. This could be due to post traumatic changes or a developing cellulitis. ACT 112: Negative or not required by law. Electronically signed by: Nabor Mercer M.D. 05/13/2022 10:11 AM
--- NOTE | 2022-05-13 10:41 | Anesthesiology Consultation ---
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 Height/Weight Height: 5 ft 9 in Weight: 110.2 kg Allergies Allergy/AdvReac Type Severity Reaction Status Date / Time diphenhydramine AdvReac Unknown hallucinati Verified 05/09/22 20:11 on Medications Home Medications Medication Instructions Recorded Confirmed Last Taken acetaminophen 500 mg tablet 500 mg PO Q6H PRN Pain 11/21/18 05/09/22 11/20/18 21:00 (Tylenol Extra Strength) 2000 mg blood sugar diagnostic (OneTouch #200 ea 01/10/21 05/09/22 Unknown Verio test strips) lancets 33 gauge (OneTouch Delica #200 ea 01/10/21 05/09/22 Unknown Lancets) nitroglycerin 0.4 mg sublingual 0.4 mg sublingual Q5M PRN chest 06/24/21 05/09/22 Unknown tablet (Nitrostat) pain #25 tabs apixaban 5 mg tablet (Eliquis) 5 mg PO BID #180 tabs 08/31/21 05/09/22 Unknown carvedilol 25 mg tablet 25 mg PO BID #180 tabs 09/12/21 05/09/22 Unknown isosorbide mononitrate 120 mg 120 mg PO QAM #90 tabs 09/29/21 05/09/22 Unknown tablet,extended release 24 hr insulin human U-100 NPH-regulr See Rx Instructions subcut BIDM 12/22/21 05/09/22 Unknown 70-30 mix 100 unit/mL subcutaneous #50 mL susp (Humulin 70/30 U-100 Insulin) atorvastatin 80 mg tablet 80 mg PO HS #90 tabs 12/26/21 05/09/22 Unknown furosemide 40 mg tablet (Lasix) 40 mg PO BID #190 tabs 01/20/22 05/09/22 Unknown clonazepam 0.5 mg tablet 0.5 mg PO DAILY #30 tabs 02/09/22 05/09/22 Unknown paroxetine HCl 10 mg tablet 10 mg PO QAM #90 tabs 03/08/22 05/09/22 Unknown lisinopril 40 mg tablet 40 mg PO QAM #90 tabs 03/29/22 05/09/22 Unknown potassium chloride 20 mEq 20 meq PO BID #180 tabs 08/03/22 09/13/22 Unknown tablet,extended release(part/cryst) (Klor-Con M) insulin syringe-needle U-100 0.5 #100 ea 04/07/22 05/09/22 Unknown mL 31 gauge x 5/16" (BD Insulin Syringe Ultra-Fine) ranolazine 1,000 mg 1,000 mg PO BID #90 tabs 04/10/22 05/09/22 Unknown tablet,extended release,12 hr tramadol 50 mg tablet 50 mg PO Q8H PRN pain #30 tabs 04/19/22 05/09/22 Unknown methylprednisolone 4 mg tablets in See Rx Instructions .Route 05/03/22 05/09/22 Unknown a dose pack (Sofea (Paul)) .COMPLEX #21 ea Active Medications Generic Name Dose Route Start Last Admin Trade Name Freq PRN Reason Stop Dose Admin Apixaban 5 mg 05/09/22 22:18 05/11/22 07:53 Apixaban 5 Mg Tablet PO 06/08/22 22:17 5 mg BID HILDA Administration Atorvastatin Calcium 80 mg 05/09/22 22:18 05/12/22 20:19 Atorvastatin 40 Mg Tab PO 06/08/22 22:17 80 mg HS HILDA Administration Carvedilol 25 mg 05/09/22 22:18 05/13/22 08:19 Carvedilol 25 Mg Tab PO 06/08/22 22:17 25 mg BID HILDA Administration Ampicillin Sodium/Sulbactam 108 mls @ 200 mls/hr 05/12/22 08:00 05/13/22 09:17 Sodium 3,000 mg/ Sodium IV 05/22/22 07:59 Infused Chloride Q6H HILDA Infusion Protocol Insulin Aspart 0 units 05/09/22 22:18 05/13/22 08:25 Insulin Aspart Per Unit SC 06/08/22 22:17 11 units ACHS HILDA Administration Insulin Human NPH 10 units 05/11/22 16:30 05/12/22 16:55 Insulin Human Nph SC 06/10/22 16:29 10 units QDD HILDA Administration Insulin Human NPH 22 units 05/13/22 07:30 05/13/22 08:25 Insulin Human Nph SC 06/12/22 07:29 22 units QDB HILDA Administration Isosorbide Mononitrate 60 mg 05/12/22 09:00 05/13/22 08:19 Isosorbide Sublette Extended Rel 60 Mg Tabcr PO 06/11/22 08:59 60 mg QAM HILDA Administration Oxycodone/Acetaminophen 1 tab 05/09/22 22:18 05/09/22 23:34 Oxycodone/Acetaminophen 5mg/325mg Tab PO 05/23/22 22:17 1 tab Q4H PRN Administration MODERATE Pain (4,5,6) & Pre PT Oxycodone/Acetaminophen 2 tab 05/09/22 22:18 05/13/22 08:18 Oxycodone/Acetaminophen 5mg/325mg Tab PO 05/23/22 22:17 2 tab Q4H PRN Administration SEVERE Pain (7,8,9,10) Paroxetine HCl 10 mg 05/11/22 16:00 05/13/22 08:19 Paroxetine Hcl 10 Mg Tab PO 06/10/22 15:59 10 mg DAILY HILDA Administration Ranolazine 1,000 mg 05/09/22 22:18 05/13/22 08:19 Ranolazine 500 Mg Er Tab PO 06/08/22 22:17 1,000 mg BID HILDA Administration Past Medical History Medical History (Updated 05/13/22 @ 10:40 by Charly Crouch DO) Anticoagulant long-term use CAD in [place] artery CHF (congestive heart failure) Chronic systolic congestive heart failure Depression Diabetes mellitus (10/30/12) Dyslipidemia Hypertension Ischemic cardiomyopathy Permanent atrial fibrillation Pneumonia Thrombocytopenia Past Family History Family History Father Patient's father is Father FH: CABG (coronary artery bypass surgery) CABG Myocardial infarction Sister COPD (chronic obstructive pulmonary disease) Denies family history of Ovarian cancer Prostate cancer Breast cancer Colorectal cancer Stroke Past Surgical History Surgical History Hx of CABG S/P implantation of automatic cardioverter/defibrillator (AICD) Social History Smoking Status: Never smoker Hx Alcohol Use: Yes Alcohol Intake Frequency Comment: Stopped drinking when he became a diabetic Hx Substance Use: No Physical Exam Vital Signs Last Vital Signs Temp 98.6 F 05/13/22 07:30 Pulse 86 05/13/22 07:30 Resp 20 05/13/22 07:30 BP 127/69 05/13/22 07:30 Pulse Ox 97 05/13/22 07:30 O2 Del Method 05/13/22 04:26 Testing Laboratory Results 05/11/22 07:32 05/13/22 06:21 Hemoglobin A1c 12.6 % (4.5-5.6) H 05/10/22 05:54 Urine Color Yellow 05/09/22 20:07 Urine Appearance Clear (Clear) 05/09/22 20:07 Urine pH 5.0 (4.5-7.5) 05/09/22 20:07 Ur Specific [place] 1.022 (1.000-1.030) 05/09/22 20:07 Urine Protein Negative (Negative) 05/09/22 20:07 Urine Glucose (UA) 3+ (Negative) H 05/09/22 20:07 Urine Ketones Negative (Negative) 05/09/22 20:07 Urine Nitrite Negative (Negative) 05/09/22 20:07 Ur Leukocyte Esterase Negative (Negative) 05/09/22 20:07 05/13/22 07:37 POC Glucose 179 H Electrocardiogram Date: 05/09/22 Atrial flutter with variable A-V block with premature ventricular or aberrantly conducted complexes Non-specific intra-ventricular conduction block Possible Anterolateral infarct (cited on or before 20-JAN-2016) T wave abnormality, consider inferior ischemia Abnormal ECG When compared with ECG of 23-NOV-2018 06:27, Atrial flutter has replaced Atrial fibrillation Questionable change in initial forces of Anterolateral leads T wave inversion now evident in Inferior leads Inverted T waves have replaced nonspecific T wave abnormality in Lateral leads Confirmed by Adrian Caballero ([id number]) on 05/10/2022 12:02:08 PM Chest X-Ray Date: 05/09/22 IMPRESSION: No acute cardiopulmonary findings. Cardiomegaly. Echocardiogram Date: 05/10/22 LV systolic function is mildly reduced Mild global hypokinesis of LV Mild concentric LVH EF 40-45% No significant valve pathology No valvular vegetation identified Compared with study of 04/10/2022, no significant change
[2022-05-13] MEDS ORDERED: ISOSORBIDE MONO EXTENDED REL 60 MG TABCR PO ONE (13:30)
--- NOTE | 2022-05-13 13:33 | Hospitalist Progress Note ---
Date of Service May 13, 2022 Assessment & Plan (1) Abscess: Plan: Abscess vs. hematoma per CT today Suspect cause of leukocytosis which is improving on Unasyn. No abscess seen on facial CT although two pockets appear to need draining on exam. Repeat CT today with abscess vs. hematoma. Consulted ENT - discussed with Dr Wang and planning on draining once off Eliquis for 48 hours on tomorrow morning (2) Acute on chronic kidney failure: Plan: - Cr 2.30, BUN 102, hard to say what his baseline Cr function is. It was 1.27 at the beginning of the year, prior labs are > 1 year old, was 1.4-2.0 then. - CT A/P without obstruction however 1.4cm hyperdense lesion recommending non- emergent renal US follow up - US renal - Exophytic cyst - Holding Lasix and gentle IV fluids given on admission. Appears euvolemic still despite holding lasix for several days - Suspect ANCELMO in setting of infection and hypotension. - Appreciate nephrology consult. Cr/BUN now improving with continuing to hold Lasix. (3) Hyponatremia: Plan: Resolved mainly with treatment of hyperglycemia HbA1C 12.6 (4) Leukocytosis: Plan: Unfortunately no blood cultures taken on admission. Good source with dental abscess as above however and improving on Unasyn which appears appropriate. (5) Hyperkalemia: Plan: - 5.8 on admission, resolved with holding lisinopril and KCl. Suspect secondary to ANCELMO above. 5.2 on labs this morning, will give a dose of Keyexelate today. Continue to trend daily. (6) Elevated troponin: Plan: Stable elevation. Suspect demand-ischemia in setting of relative hypotension TTE - LVEF 40-45%, actually improved from prior. No wall motion abnormalities (7) Hyperglycemia: Plan: HbA1C 12.6 Appreciate pharmacy glycemic consult (8) Diabetes mellitus: Plan: As above (9) Frequent falls: Plan: - Can be multifactorial due to multiple meds hat may contribute--clonazepam, tramadol, hyponatremia uremia, hypotension on lisinopril - Will re-evaluate following abscess/hematoma management (10) Permanent atrial fibrillation: Plan: - Permanent, asymptomatic, remains rate controlled with carvedilol. - Eliquis on hold due to dental abscess/hematoma management (11) Ischemic cardiomyopathy: Plan: - Has AICD. - Echo 04/10/22: EF 35-40%, mild global hypokinesis and mild LVH. - Continue carvedilol, hold lisinopril for now (ANCELMO, hyper K). (12) Chronic systolic congestive heart failure: Plan: - Holding Lasix for ANCELMO, likely need to restart in next 1-2 days as Cr improves - Continue carvedilol. - Low sodium/DM diet. - Strict I/Os - UO not being measured - Daily weights. (13) Depression: Plan: - Restarted on paroxetine 10mg PO daily to avoid withdrawal - Holding Clonazepam if able, patient has been on this qHS for awhile, do not want to cause withdrawal but may be contributing to falls. (14) Thrombocytopenia: Plan: Unclear cause of this but appears to be stable. Recommend outpatient heme follow up. ?early cirrhosis noted on CT A/P Plan - stable for transfer to [facility] - [facility], [facility] on hold as above - Full Code. Admission and Anticipated Discharge Date Admission Date: May 09, 2022 Subjective No fever or chills. No change in urinary symptoms. No shortness of breath. Swelling appears increased today. Only able to eat and drink very little. Review of Systems Review of Systems: All systems reviewed & are unremarkable except as noted in Subjective Physical Exam Constitutional: well developed and + disheveled; + not well nourished and no acute distress ENMT: Mouth: + dry oral mucous membranes and + gingival abnormality (pus filled tender pocket anterior/inferior to 22 and 27) Neck: right submental tender swelling Respiratory: normal respiratory effort, lungs clear to auscultation Cardiovascular: Rate/Rhythm: regular rate and regular rhythm Heart Sounds: no murmur Extremities: normal capillary refill and + pedal edema (1 + b/l ankles pitting) Gastrointestinal (Abdomen): normal bowel sounds, soft, nontender, no hepatosplenomegaly Skin: no rashes, warm and dry Neurologic: moves all extremities and awake; not confused Psychiatric: A+Ox3, euthymic affect Results & Data Results & Data ([facility]) Vital Signs (Past 12 Hours) Vital Signs Temp Pulse Resp BP Pulse Ox O2 Del Method 05/13/22 12:00 36.8 C 88 18 132/61 97 05/13/22 08:00 Room Air 05/13/22 07:30 37.0 C 86 20 127/69 97 05/13/22 04:26 37.0 C 93 H 20 108/63 96 Room Air PG Care Time/CCT Total # of Minutes Spent Total Time Spent with Patient: Total time spent is greater than 50% in coordination of care (as documented) at patient's floor/unit and/or counseling patient: Coding Level of Care Code 59350 Subseq Hosp Care Lvl 2 Diagnoses Abscess L02.91 Acute on chronic kidney failure N17.9; N18.9 Hyponatremia E87.1 Leukocytosis D72.829 Hyperkalemia E87.5 Elevated troponin R77.8 Hyperglycemia R73.9 Diabetes mellitus E11.9 Frequent falls R29.6 Permanent atrial fibrillation I48.2 Ischemic cardiomyopathy I25.5 Chronic systolic congestive heart failure I50.22 Depression F32.9 Thrombocytopenia D69.6
[2022-05-13] MEDS: ATORVASTATIN 40 MG TAB PO SCH (20:07)
[2022-05-14] MEDS: AMPICILLIN/SULBACTAM SOD 3,000 MG in 0.9 % SODIUM CHLORIDE 100 ML IV SCH ×4 (01:18→20:07)
[2022-05-14] MEDS ORDERED: PROPOFOL IV EMULSION 10 MG/ML 20 ML VIAL IV ONE (07:08)
[2022-05-14] MEDS ORDERED: LIDOCAINE 2% 2 ML VIAL/AMP(20MG/ML) INFIL ONE (07:08)
[2022-05-14] MEDS ORDERED: fentaNYL citrate 100 MCG/2 ML VIAL ONE ×3 (07:08→09:04)
[2022-05-14] MEDS ORDERED: DEXAMETHASONE SOD INJ 4 MG/ML VIAL ONE (07:08)
[2022-05-14] MEDS ORDERED: MIDAZOLAM HCL 1 MG/ML 2ML VIAL ONE (07:08)
[2022-05-14] MEDS ORDERED: ONDANSETRON INJ 2 MG/ML 2 ML VIAL ONE (07:08)
[2022-05-14] MEDS ORDERED: SUGAMMADEX SODIUM 200 MG/2 ML VIAL IV ONE (07:10)
[2022-05-14] MEDS: INSULIN ASPART PER UNIT SC SCH ×4 (07:13→20:12)
[2022-05-14] MEDS ORDERED: BUPIVACAINE/EPINEPHRINE 0.5% 1:200,000 1.8 ML CARP ONE (07:17)
[2022-05-14 07:18] LABS: Basophils # (auto) 0.03 K/uL (0-0.2); Basophils % (auto) 0.2 %; Echinocytes 1+; Eosinophils # (auto) 0.16 K/uL (0-0.50); Eosinophils % (auto) 1.2 %; Hematocrit (blood only) 39.4 % (40.1-51.0); Immature Granulocytes # (auto) 0.16 K/uL (0.00-0.02); Immature Granulocytes % (auto) 1.2 %; Lymphocytes # (auto) 1.48 K/uL (1.2-3.4); Lymphocytes % (auto) 11.4 %; Mean Corpuscular Hemoglobin 30.4 pg (25.0-34.0); Mean Corpuscular Volume 92.1 fL (80.0-100.0); Mean Platelet Volume 11.8 fL (9.4-12.4); Monocytes # (auto) 1.34 K/uL (0.24-0.82); Monocytes % (auto) 10.3 %; Neutrophils # (auto) 9.79 K/uL (1.4-6.5); Neutrophils % (auto) 75.7 %; Platelet Count 106 K/uL (130-400); Platelet Estimate Decreased (Normal); Polychromasia 1+; RDW Coefficient of Variation 13.8 % (11.5-14.5); RDW Standard Deviation 46.7 fL (36.4-46.3); Red Blood Count 4.28 M/uL (4.63-6.08); White Blood Count 12.96 K/ul (4.8-10.8)
[2022-05-14] MEDS ORDERED: CHLORHEXIDINE GLUCONATE 0.12% 480 ML ONE (07:18)
[2022-05-14] MEDS ORDERED: ATROPINE SULFATE 0.1 MG/ML 10ML SYR IV PRN (07:23)
[2022-05-14] MEDS ORDERED: ePHEDrine sulfate 50 MG/ML AMP IV PRN (07:23)
[2022-05-14] MEDS ORDERED: ONDANSETRON INJ 2 MG/ML 2 ML VIAL IV PRN (07:23)
--- NOTE | 2022-05-14 07:32 | History & Physical Bridge Note ---
Date of Service May 14, 2022 History & Physical Bridge Note I have examined the patient, reviewed the History & Physical and in the interval since the performance of the History & Physical I have noted the following changes of clinical significance: no changes noted The infection has localized to the submental area. I will plan I & D extraoral/intraoral today. C & S will be pending
[2022-05-14 07:33] LABS: Calcium 8.4 mg/dl (8.5-10.1); Creatinine Clr Calc Pharmacy 67.3 ml/min; Est GFR (African American) 64.7 ml/min; Est GFR (Non-African American) 55.8 ml/min
[2022-05-14] MEDS ORDERED: CHLORHEXIDINE GLUCONATE 0.12% 480 ML MT PRN (08:46)
[2022-05-14] MEDS: fentaNYL citrate 100 MCG/2 ML VIAL IV PRN ×6 (08:46→09:16)
[2022-05-14] MEDS: RANOLAZINE 500 MG ER TAB PO SCH ×2 (09:41→20:10)
[2022-05-14] MEDS: carvediloL 25 MG TAB PO SCH ×2 (09:41→20:10)
[2022-05-14] MEDS: ISOSORBIDE MONO EXTENDED REL 60 MG TABCR PO SCH (09:42)
[2022-05-14] MEDS: PARoxetine HCL 10 MG TAB PO SCH (09:49)
--- NOTE | 2022-05-14 09:52 | Anesthesiology Progress Note ---
Date of Service May 14, 2022 Anesthesia Post Procedure Vital Signs Vital Signs: Temp Pulse Pulse Resp BP BP Pulse Ox 05/14/22 09:30 98.2 F 140 H 18 119/93 95 05/14/22 09:20 98.2 F 120 H 13 143/92 H 92 05/14/22 09:10 121 H 14 156/98 H 95 05/14/22 09:00 111 H 14 130/82 95 05/14/22 08:50 98.1 F 111 H 13 133/96 95 05/14/22 08:40 111 H 12 140/99 97 05/14/22 08:32 98.2 F 113 H 12 151/114 H 98 05/13/22 23:00 90 05/14/22 02:37 98.2 F 87 18 106/71 96 05/13/22 23:00 98.2 F 82 16 107/73 95 05/13/22 19:00 98.2 F 98 H 16 111/71 98 05/13/22 12:00 98.2 F 88 18 132/61 97 O2 Del Method 05/14/22 09:30 Room Air 05/14/22 09:20 Room Air 05/14/22 09:10 Room Air 05/14/22 09:00 Room Air 05/14/22 08:50 Room Air 05/14/22 08:40 Room Air 05/14/22 08:32 Room Air 05/13/22 23:00 05/14/22 02:37 Room Air 05/13/22 23:00 Room Air 05/13/22 19:00 Room Air 05/13/22 12:00 Pain Intensity Bilateral Face: Pain Intensity: 4 Bilateral Lower Jaw: Pain Intensity: 6 Transfer of Care Handoff Completed per policy Notes Mental Status: alert / awake / arousable and participated in evaluation Patient Amnestic to Procedure: Yes Nausea / Vomiting: adequately controlled Pain: adequately controlled Airway Patency, RR, SpO2: stable & adequate BP & HR: stable & adequate Hydration State: stable & adequate Anesthetic Complications: no major complications apparent and Pt Satisfied with anesthetic care
[2022-05-14] MEDS: oxyCODONE/ACETAMINOPHEN 5mg/325mg TAB PO PRN (10:39)
[2022-05-14] MEDS ORDERED: INSULIN HUMAN NPH SC SCH (16:30)
--- NOTE | 2022-05-14 18:26 | Hospitalist Progress Note ---
Date of Service May 14, 2022 Assessment & Plan (1) Abscess: Plan: Abscess/hematoma Suspect cause of leukocytosis which is improving on Unasyn. Consulted ENT, discussed with Dr Wang - POD#0 incision and drainage (2) Acute on chronic kidney failure: Plan: - Cr 2.30, BUN 102, hard to say what his baseline Cr function is. It was 1.27 at the beginning of the year, prior labs are > 1 year old, was 1.4-2.0 then. - CT A/P without obstruction however 1.4cm hyperdense lesion recommending non- emergent renal US follow up - US renal - Exophytic cyst - Holding Lasix and gentle IV fluids given on admission. Appears euvolemic still despite holding lasix for several days - Suspect ANCELMO in setting of infection and hypotension. - Cr/BUN continuing to improve with holding Lasix. (3) Hyponatremia: Plan: Resolved mainly with treatment of hyperglycemia HbA1C 12.6 (4) Leukocytosis: Plan: Unfortunately no blood cultures taken on admission. Good source with dental abscess as above however and improving on Unasyn which appears appropriate. (5) Hyperkalemia: Plan: - 5.8 on admission, resolved with holding lisinopril and KCl. Suspect secondary to ANCELMO above. Improved to 4.0 after Kayexalate given. Will continue to trend (6) Elevated troponin: Plan: Stable elevation. Suspect demand-ischemia in setting of relative hypotension TTE - LVEF 40-45%, actually improved from prior. No wall motion abnormalities (7) Hyperglycemia: Plan: HbA1C 12.6 Appreciate pharmacy glycemic consult (8) Diabetes mellitus: Plan: As above (9) Frequent falls: Plan: - Can be multifactorial due to multiple meds hat may contribute--clonazepam, tramadol, hyponatremia uremia, hypotension on lisinopril - Will re-evaluate following abscess/hematoma management (10) Permanent atrial fibrillation: Plan: - Permanent, asymptomatic, remains rate controlled with carvedilol. - Eliquis on hold due to dental abscess/hematoma management (11) Ischemic cardiomyopathy: Plan: - Has AICD. - Echo 04/10/22: EF 35-40%, mild global hypokinesis and mild LVH. - Continue carvedilol, hold lisinopril for now (ANCELMO, hyper K). (12) Chronic systolic congestive heart failure: Plan: - Holding Lasix for ANCELMO, unclear when/if he needs to restart as remains euvolemic - Continue carvedilol. - Low sodium/DM diet. - daily weights (13) Depression: Plan: - Restarted on paroxetine 10mg PO daily to avoid withdrawal - Holding Clonazepam if able, patient has been on this qHS for awhile, do not want to cause withdrawal but may be contributing to falls. (14) Thrombocytopenia: Plan: Unclear cause of this but appears to be stable. Recommend outpatient heme follow up. ?early cirrhosis noted on CT A/P Plan - continue on med/tele - SCDS, Eliquis on hold as above - Full Code. Admission and Anticipated Discharge Date Admission Date: May 09, 2022 Subjective Patient seen post operatively. Reports feeling much less pressure since incision and drainage. Diarrhea after Kayexalate given yesterday. No shortness of breath or worsening leg swelling. Reports just wanting to get some sleep. Review of Systems Review of Systems: All systems reviewed & are unremarkable except as noted in Subjective Physical Exam Constitutional: well developed; + not well nourished and no acute distress Neck: right neck dressing not removed Respiratory: normal respiratory effort, lungs clear to auscultation Cardiovascular: Rate/Rhythm: + tachycardic and + irregularly irregular Heart Sounds: no murmur Extremities: normal capillary refill and + pedal edema (1 + b/l ankles pitting) Skin: no rashes, warm and dry Neurologic: moves all extremities and awake; not confused Psychiatric: A+Ox3, euthymic affect Results & Data Results & Data ([facility]) Vital Signs (Past 12 Hours) Vital Signs Temp Pulse Resp BP Pulse Ox O2 Del Method 05/14/22 16:45 36.8 C 97 H 20 124/70 97 05/14/22 11:30 Room Air 05/14/22 11:17 36.9 C 110 H 20 117/69 94 Room Air 05/14/22 10:42 112 H 21 134/86 94 Room Air 05/14/22 10:15 36.9 C 115 H 46 H 134/86 94 Room Air 05/14/22 09:45 144 H 20 140/97 95 Room Air 05/14/22 09:30 36.8 C 140 H 18 119/93 95 Room Air 05/14/22 09:20 36.8 C 120 H 13 143/92 H 92 Room Air 05/14/22 09:10 121 H 14 156/98 H 95 Room Air 05/14/22 09:00 111 H 14 130/82 95 Room Air 05/14/22 08:50 36.7 C 111 H 13 133/96 95 Room Air 05/14/22 08:40 111 H 12 140/99 97 Room Air 05/14/22 08:32 36.8 C 113 H 12 151/114 H 98 Room Air PG Care Time/CCT Total # of Minutes Spent Total Time Spent with Patient: Total time spent is greater than 50% in coordination of care (as documented) at patient's floor/unit and/or counseling patient: Coding Level of Care Code 00849 Subseq Hosp Care Lvl 2 Diagnoses Abscess L02.91 Acute on chronic kidney failure N17.9; N18.9 Hyponatremia E87.1 Leukocytosis D72.829 Hyperkalemia E87.5 Elevated troponin R77.8 Hyperglycemia R73.9 Diabetes mellitus E11.9 Frequent falls R29.6 Permanent atrial fibrillation I48.2 Ischemic cardiomyopathy I25.5 Chronic systolic congestive heart failure I50.22 Depression F32.9 Thrombocytopenia D69.6
[2022-05-14] MEDS: ATORVASTATIN 40 MG TAB PO SCH (20:10)
[2022-05-15] MEDS: AMPICILLIN/SULBACTAM SOD 3,000 MG in 0.9 % SODIUM CHLORIDE 100 ML IV SCH ×2 (03:09→08:35)
[2022-05-15 07:05] LABS: BUN Creatinine Ratio 26.5 (10-20); Calcium 8.5 mg/dl (8.5-10.1); Creatinine Clr Calc Pharmacy 60.3 ml/min; Est GFR (African American) 56.8 ml/min; Potassium 5.5 mmol/L (3.5-5.1)
[2022-05-15] MEDS ORDERED: SODIUM POLYSTYRENE SULFONATE 15G/60ML SUSP PO STA (07:09)
[2022-05-15] MEDS: carvediloL 25 MG TAB PO SCH (08:29)
[2022-05-15] MEDS: RANOLAZINE 500 MG ER TAB PO SCH (08:29)
[2022-05-15] MEDS: PARoxetine HCL 10 MG TAB PO SCH (08:30)
[2022-05-15] MEDS: ISOSORBIDE MONO EXTENDED REL 60 MG TABCR PO SCH (08:30)
[2022-05-15] MEDS: INSULIN ASPART PER UNIT SC SCH ×2 (08:34→12:05)
[2022-05-15] MEDS: INSULIN HUMAN NPH SC SCH (08:35)
--- NOTE | 2022-05-15 08:53 | Operative Report ---
PG Post Operative Report Pre & Post Diagnosis Operation Date: 05/14/22 07:15 Pre-Op Diagnosis: submental swelling Post-Op Diagnosis: submental swelling I identified the patient and participated in the time-out.: Yes Procedure Operation Date: 05/14/22 07:15 Actual Procedures p Incision and Drainage submental swelling - Sekou Wang DMD Surgeon Sekou Wang DMD Supervisor Dry Paste none Estimated Blood Loss 10 Findings Consistent with Post-Op Diagnosis gross swelling chin and vestibular area of the lower front teeth Fluids none Specimens I&D and infected tissue (pressure necrosis ) Drains 1/4 inch Pen Anat Anesthesia Type General Complications none Indications infection not responding to antibiotics Description of Procedure Incision and Drainage submental swelling CODING CPT 12137 Incision and Drainage submental swelling ICD 10 K12.2 Cellulitics submental area Actual Procedures p Incision and Drainage Submental Abscess; - Sekou Wang DMD Once cleared for surgery general anesthesia was achieved, the eyes were protected by the anesthesia dept criteria. A time out was take for patient ID, antibiotics, equipment and position verification once all agreed the procedure began. Local anesthesia using Marcaine with a vasoconstrictor ( 1.8 ml per site) given into right/left inferior alveolar nerve A throat pack was placed after the oral cavity was irrigated with saline. Once a surgical level of anesthesia was obtained and the local anesthesia was given time for the blocks the surgery was started. I turned my attention to the infection which was located in the anterior vestibular area and submental area-- chin infection Incision and Drainage Using a 15 blade an incision was made in the most swollen area on the lateral submental area as well as the labial vestibular area right side. Once the incision was made a lot of pus extruded from the site. This drainage was cultured for anaerobic and aerobic bacteria. A curved hemostat was carefully placed into the infected space along the laterial side of the lower jaw and into the submental space. Some further drainage was now allowed to escape. I palpated the chin and submental area and no further drainage was expressed. The area was irrigated with at least 100 ml of NS solution. A 1/4 inch Sudha drain was advanced from the skin incision to the labial vestibular area--right side. The tissue in the labial vestibular area was necrotic and dusky in color. Once the area was drained it was easy to reflect the tissue off the bone for further drainage. I trimmed any necrotic tissue irrigated the area and evacuated what looked like an infected hematoma that got secondary infected. I used some 2-0 chromic to tack the tissue back into position. The drain was secured to the skin. I inspected the sites to insure all bleeding was controlled. I removed the throat pack and suctioned the throat. Bilateral gauze pressure dressings were placed. All instrument and sponge count was correct. the patient was allowed to awake from the anesthesia. Once full awake the anesthesia tube was removed and the patient was taken to the recovery room with all vital sign stable. The patient tolerated the surgery very well. I will follow the patient in my office, Rx and instructions will be given upon discharge. Drain removal on May 18, 2022 I attest to the content of the Intraoperative Record and any orders documented therein. Any exceptions are noted below.
--- NOTE | 2022-05-15 09:27 | Pharmacy Report ---
Pharmacy Glycemic Short Note 2 - Date of Service May 15, 2022 - Glycemic Short BSG Results (Last 24 hours): 05/14/22 05/14/22 05/14/22 11:30 16:20 19:53 Glucose POC Glucose 168 H 175 H 230 H 05/15/22 05/15/22 05:54 07:02 Glucose 130 H POC Glucose 130 H OUTPATIENT ANTIDIABETIC REGIMEN: * Novolin 70/30 32 units in the morning and 14 units in the evening * HbA1C = 12.6% (05/10/22) ASSESSMENT: 05/15/22 * BSGs increased throughout the day yesterday, 129 -> 168 -> 175 -> 230 mg/dL * Likely related to held basal dose in the AM due to diet change to NPO (I&D of jaw) * Diet re-ordered later in the day and continues today * Will change back to previous insulin regimen, as this provided reasonable glycemic control * Continues on Unasyn for possible infection of jaw 05/12/22 * Patient's BSG yesterday were [id number] mg/dL. Patient's fasting BSG today was 167 mg/dL. * Patient received 65 units of insulin yesterday (28 units of basal and 37 units of bolus). * Will increase breakfast NPH by 20% to 22 units as BSGs elevated later in the day. * Tighten Novolog. BACKGROUND * Mr Craig is a 67 y/o M with a PMH of T2DM who presents with a fall. * Admitting BSG was 408 mg/dL for which the patient received 10 units of IV insulin. * Overnight the patient's BSGs were 263-217 mg/dL and patient received 9 units of Novolog. * Fasting BSG was 234 mg/dL. * Per previous admission, patient did well with his home regimen. * Start NPH 20 units in morning and 10 units at dinner (approximately 70% of home regimen) plus Novolog weight-based stress of 2. * Overnight checks to establish true basal needs. PLAN FOR INPATIENT GLYCEMIC CONTROL: * Hold outpatient oral diabetes medications * Basal insulin * NPH 22 units SQ in morning then 10 units at dinner * Bolus insulin * NovoLog per scale ACHS or Q6hrs while NPO * Goal Range: Low 110 mg/dL - High 140 mg/dL * Correction Factor: 12 mg/dL/unit * Nutritional / Prandial insulin per carb ratio of 1 unit per 3.5 grams CHO consumed
--- NOTE | 2022-05-15 11:31 | XRay Report ---
XR chest 1V portable HISTORY: 67 years-old Male pulmonary edema acute shortness of breath COMPARISON: Chest radiograph 05/09/2022 TECHNIQUE: Portable AP view of the chest FINDINGS: The cardiac silhouette is enlarged. Prior median sternotomy. Right pectoral pacer/AICD. No pneumothor ax, large pleural effusion or lobar airspace consolidation. Pulmonary vascular congestion. Degenerati ve changes of the shoulders and spine. IMPRESSION: Cardiomegaly with pulmonary vascular congestion. ACT 112: Negative or not required by law. The above report was generated using voice recognition software. It may contain grammatical, syntax o r spelling errors. Electronically signed by: Lucas Rodriguez M.D. 05/15/2022 11:30 AM
[2022-05-15] MEDS: oxyCODONE/ACETAMINOPHEN 5mg/325mg TAB PO PRN (12:08)
--- NOTE | 2022-05-15 12:27 | Oral/Maxillofacial Progress Nt ---
Date of Service May 15, 2022 Assessment & Plan Admission and Anticipated Discharge Date Admission Date: May 09, 2022 Subjective Post Op infection evaluation at 24 hours The infected area is now healing very well. Swelling is going down and the tissue is looking rather well Good drainage is noted. Drain to be removed on May 18 at 3:30 in my office --card with info given Cultures were reviewed. Infection has responded very well to the antibiotics and the I and D. I requested that the patient continue with massage, heat and wound care. Hold off on the Eliquis until drain removal --I will have him re start Sunday At this time the area is well healed and responded well to treatment. OK for D/C from my point of view RTC for drain removal May 18 at 3:30 . Results & Data ([facility]) Vital Signs (Past 12 Hours) Vital Signs Temp Pulse Pulse Resp BP Pulse Ox O2 Del Method 05/15/22 11:45 36.8 C 79 18 101/67 98 05/15/22 10:40 Room Air 05/15/22 07:07 36.7 C 109 H 18 118/81 96 05/15/22 01:01 103 H PG Care Time/CCT Total # of Minutes Spent Total Time Spent with Patient: Total time spent is greater than 50% in coordination of care (as documented) at patient's floor/unit and/or counseling patient: Coding Level of Care Code None
--- NOTE | 2022-05-15 13:16 | Discharge Summary ---
Date of Service May 15, 2022 Admission HPI Per Admitting Provider Kuldeep Craig is a 67-year-old male with past medical history significant for CAD s/p CABG, HFrEF, ischemic cardiomyopathy s/p AICD, permanent A. fib, DM2 on insulin, hypertension, dyslipidemia, thrombocytopenia, depression who presents today with ongoing falls at home. He has been falling multiple times a day for a month, mostly because he has been tripping or not paying attention when he was walking. Several falls have resulted from him getting up and immediately feeling dizzy and falling, however denies LOC or hitting his head. Denies chest pain, sob, or palpitations preceding falls. On a fall one motnh ago, he fell into his washing machine and hit his face on it. It has continue to be painful and is worsening. He went to his dentist several days ago due to jaw pain who suggested he see a maxillofacial surgeon. He is not eating or drinking much because it hurts his jaw, but is not having difficulty swallowing. No other complaints, denies abdominal pain, n/v/d, urinary symptoms. No current or recent chest pain, dyspnea, orthopnea. He was recently on steroids for a knee injury sustained in a fall but has been off of them for a week now. Has been compliant with all home medications, including insulin which he took this morning. Upon presentation to the ED, his vital signs are within normal limits and they are stable. He is in A. fib with HR in 90s. Labs significant for sodium of 126, potassium 5.8, chloride 90. BUN significantly increased to 102, creatinine 2.30, glucose 408, troponin 74.1. Also notable is a WBC of 14.35, this is in the setting of methylprednisolone use. Platelets low at 113, however this is his baseline. T bili elevated 1.8, however has been elevated to this extent for several years. His UA is pending. He is COVID-negative. CXR reveals cardiomegaly without pulmonary edema noted. Head CT without any acute findings. Face CT shows a left inferior facial/chin contusion, but no facial fractures. Principal Diagnosis Facial infection Acute renal failure Discharge Exam Constitutional well developed; + not well nourished and no acute distress Respiratory normal respiratory effort, lungs clear to auscultation Cardiovascular Rate/Rhythm: regular rate and regular rhythm Heart Sounds: no murmur Extremities: normal capillary refill and + pedal edema (1 + b/l ankles pitting) Gastrointestinal (Abdomen) normal bowel sounds, soft, nontender, no hepatosplenomegaly Musculoskeletal no cyanosis or clubbing, extremities motor strength 5/5 Skin no rashes, warm and dry (surgical drain in place) Neurologic moves all extremities and awake; not confused Psychiatric A+Ox3, euthymic affect Discharge Data Allergies Allergy/AdvReac Type Severity Reaction Status Date / Time diphenhydramine AdvReac Unknown hallucinati Verified 05/09/22 20:11 on Consultations 05/09/22 20:12 ED Decision to Admit Stat 05/10/22 08:05 [facility] CHF Program Referral Routine 05/11/22 15:38 Consult Nephrology Routine 05/11/22 15:50 Consult Otolaryngology (Head and Neck) Routine Procedures Performed Operation Date: 05/14/22 07:15 Actual Procedures p Incision and Drainage submental swelling - Sekou Wang DMD Ordered Studies 05/09/22 17:55 CT head/brain wo con Stat IMPRESSION: 1. No acute intracranial findings. 2. No acute calvarial fracture. 05/09/22 18:09 CT face [CT facial bones wo con] Stat IMPRESSION: 1. No acute facial fracture. 2. Left inferior facial/chin contusion. 05/09/22 22:08 CT abd pelvis wo con Urgent IMPRESSION: 1. No bowel obstruction or bowel wall thickening. Normal appendix. 2. Cholelithiasis without CT evidence of acute cholecystitis. 3. Equivocal mild marginal nodularity of the liver raises the possibility of early cirrhosis. Correlate with LFTs. 4. 1.4 cm hyperdense lesion of the inferior pole left kidney. Correlation with a nonemergent follow-up renal ultrasound recommended. 5. Additional findings as above. 05/11/22 08:48 US Renal Bladder [US renal/blad retro comp] Routine IMPRESSION: Exophytic cyst is in the left inferior pole, possibly with proteinaceous/h emorrhagic component. 05/13/22 09:17 CT facial bones wo con Routine IMPRESSION: 1. There is a skin marker within the right anterior neck/chin. Deep to the skin marker there is a 2.8 x 1.2 cm heterogeneous subcutaneous collection. This favors a small soft tissue hematoma. A developing abscess could also have a similar appearance but is considered less likely given the recent trauma 2. Small foci of gas within the right lower lip as described above. No associated fluid. This could represent a small laceration. 3.The skin thickening/subcutaneous edema within the anterior neck has slightly progressed. This could be due to post traumatic changes or a developing cellulitis. Hospital Course (1) Abscess: Kuldeep Craig is a 67 year old male admitted to [facility] from May 09 - 2021 after a fall at home causing pain in your mouth and neck. He was diagnosed with a facial hematoma and infection. His Eliquis was held and he underwent incision and drainage of the submental swelling by Dr Wang on May 14. Rare gram positive cocci noted on gram stain but full surgical culture pending on discharge (please follow this up at PCP visit). Please see additional instruction below regarding his surgery from Dr Wang. He was prescribed Unasyn during his inpatient stay and will be discharged with Augmentin as prescribed by Dr Wang. He should hold his Eliquis until follow up with Dr Wang to avoid re-accumulating hematoma. He has a drain left in place which will be removed by Dr Wang in clinic. He was also noted to have acute kidney failure with Cr 2.3 from 1.27 due to hypotension from the infection in setting of his usual anti-hypertensives. His Lasix was held and he had gentle IV fluids for 24 hours. During his stay he developed no signs or symptoms of heart failure but had mild pulmonary vascular congestion on CXR on discharge. He will follow up with the heart failure clinic in 3 days with labs in 2 days to decide on going back on Lasix. Due to hyperkalemia with K 5.8 on admission his potassium supplementation and lisinopril have been discontinued. His blood pressure has remained low normal despite discontinuation of lisinopril and would be careful if ever deciding to restart this. He was treated with Kayexalate twice during his admission. Suspect his overall body potassium is high and continues to push it back into his blood after treatment but this should resolve as his renal function stabilizes and likely when Lasix is re-introduced. He has required approximately half his usual dosing of insulin during his inpatient stay however suspect this was due to his reduced appetite therefore no changes to his insulin regimen were made especially given his HbA1C 12.6. Recommend he follows up with his PCP for ongoing diabetes management. Given frequent falls recommended discontinuation of clonazepam especially while taking pain medication. Of note he was also diagnosed with thrombocytopenia. CT A/P showed possible early signs of cirrhosis. Consider gastroenterology referral at PCP follow up. (2) Acute on chronic kidney failure: (3) Hyponatremia: (4) Leukocytosis: (5) Hyperkalemia: (6) Elevated troponin: (7) Hyperglycemia: (8) Diabetes mellitus: (9) Frequent falls: (10) Permanent atrial fibrillation: (11) Ischemic cardiomyopathy: (12) Chronic systolic congestive heart failure: (13) Depression: (14) Thrombocytopenia: Total Time Total Time Spent Total Time Spent (In Minutes): 50 Discharge Plan Discharge Items Patient Disposition: Home - Home Health Services Reason For Visit: FREQUENT FALLS, HYPONATREMIA Discharge Diagnosis: Facial infection Acute renal failure Activity: Resume your previous activity Bathing: No limitations Exercise/Sports: Gradually increase as tolerated Driving/Machine Use: Resume 3 days after discharge Weightbearing: Full weightbearing Non-emergency contact: Surgeon Call non-emergency contact if: you have any medication questions, your pain is worsening, your temperature is above 101.5 and your wound pain has increased Follow-up/Referrals: Adrian Silveira MD [Primary Care Provider] - 05/23/22 12:00 pm (with Archana Hammer) Katina Batista PA-C [Physician Sock Lining Examiner] - 05/18/22 2:00 pm (Congestive Heart Failure Program Appointment Information Early follow up is essential to managing your heart failure. An appointment has been scheduled for you with the [facility] Heart Failure Program within 7 days of discharge. Anticipate this visit to be 30-60 minutes long. Please expect a scrap picker phone call from one of our nurses approximately 48 hours from discharge. They will also be placing an order for lab work to be completed 1-2 days prior to your heart failure follow up appointment. Please be sure to have this done so we can go over the results when you come in. Office Location The cardiology office building is located in front of the hospital at [address] Bring the following with you to your follow-up doctor appointments: Please bring your daily weight log any discharge paperwork all of your medication bottles with you to this visit. ) Sekou Wang DMD [Physician] - 05/25/22 2:15 pm Diet: Full liquid, Clear liquid and Low Potassium (2gm) Diet Comment: clear--full-- dental soft Ambulatory Orders: Basic Metabolic Panel (Routine) Timeframe: [id number] Location: Determined by Patient Ordered By: Ishan Toro Attending Provider Instructions: You were admitted to [facility] from May 09 - 2021 after a fall at home causing pain in your mouth and neck. You were diagnosed with a facial hematoma and infection. Your Eliquis was held and you underwent incision and drainage of the submental swelling by Dr Wang on May 14. Please see additional instruction below regarding your surgery from Dr Wang. Please take antibiotics with Augmentin as prescribed. Please hold your Eliquis until follow up with Dr Wang. You were also noted to have acute kidney failure due to low blood pressure from the infection and your normal anti-hypertensives. Your Lasix was held and you have not had worsening shortness of breath, lung exam or leg swelling therefore recommend continuing to hold your Lasix until follow up with Kalee Batista for ongoing advice. Please repeat a blood test in two days for your follow up with Kalee Batista. Due to high potassium levels please stop your potassium supplementation and lisinopril. Lisinopril was also discontinued due to low normal blood pressures. If you diet is still reduced recommend reducing your insulin requirement in half. Please follow up with your primary care provider for ongoing management of this. Given frequent falls recommend discontinuation of clonazepam especially while taking pain medication [place] [employer] Offbearer Provider Instructions: ADDITIONAL ACTIVITY RECOMMENDATIONS: * [place] teeth after every meal. It is very important to keep your mouth clean to prevent infection. * Starting tonight rinse with the Peridex as directed then 2 x a day * it is very important to keep well hydrated, this prevents fever and possible dry socket pain SPECIAL CARE INSTRUCTIONS: *It is not uncommon that between day 2-4 that your swelling will be at its worst this is very normal, do not be alarmed. * Keep ice on the side of your face for the next 24 to 36 hours. This will help keep the swelling down. * After 36 hours, apply heat (hot water bottle or heating pad) for the next two days, as often as possible. * Tomorrow start rinsing your mouth with 1/2 teaspoon salt in 8 ounces warm water. This rinse should be used every 4-6 hours. * You may experience slight nausea. To prevent this, never take your medication on an empty stomach. If nauseated, take small sips of chasity tammy until you feel better; then you may start on applesauce and toast. * Some swelling is common. It should gradually decrease within 4-5 days. * A certain amount of bleeding is to be expected. It is often possible to control mild oozing by placing folded gauze over the area and biting down for 30 minutes. If you are unable to control excessive bleeding, call Dr Wang at [phone] * You may experience some discomfort for a few days. If pain or swelling increases, Call Dr Wang * Return to the office for a follow up check up on: Sunday at 3:30 pm * [facility] phone # [phone] Pending Studies at Discharge: Yes (surgical culture results) Stand-Alone Forms: [employer], Smoking Cessation Medications and DC Order Prescriptions: Continued (DME) lancets [OneTouch Delica Lancets] 33 gauge misc See Rx Instructions .ROUTE .MEDSUPPLY Qty: 200 3RF Rx Instructions: Test twice daily (DME) OneTouch Verio test strips Strip See Rx Instructions .ROUTE .MEDSUPPLY Qty: 200 3RF Rx Instructions: Test two times daily nitroglycerin [Nitrostat] 0.4 mg tablet, sublingual 0.4 mg sublingual Q5M PRN (Reason: chest pain) Qty: 25 3RF Rx Instructions: Place 1 tablet under tongue every 5 minutes for up to 3 doses for chest pain. Call 911 if pain persists carvedilol 25 mg tablet 25 mg PO BID Qty: 180 3RF isosorbide mononitrate 120 mg tablet extended release 24 hr 120 mg PO QAM Qty: 90 3RF Humulin 70/30 U-100 Insulin 100 unit/mL (70-30) suspension See Rx Instructions SQ BIDM Qty: 50 5RF Rx Instructions: Inject 32 units in the morning and 14 units in the evening atorvastatin 80 mg tablet 80 mg PO HS Qty: 90 3RF paroxetine HCl 10 mg tablet 10 mg PO QAM Qty: 90 3RF (DME) insulin syringe-needle U-100 [BD Insulin Syringe Ultra-Fine] 0.5 mL 31 gauge x 5/16" syringe See Rx Instructions .ROUTE .MEDSUPPLY Qty: 100 2RF Rx Instructions: use twice daily ranolazine 1,000 mg tablet extended release 12 hr 1,000 mg PO BID Qty: 90 3RF amoxicillin-pot clavulanate 875-125 mg tablet 1 tab PO Q12H Qty: 20 0RF hydrocodone-acetaminophen 5-325 mg tablet 1 tab PO Q4H PRN (Reason: pain) Qty: 14 0RF acetaminophen [Tylenol Extra Strength] 500 mg Tablet 500 mg PO Q6H PRN (Reason: Pain) Eliquis 5 mg tablet 5 mg PO BID Qty: 180 3RF Rx Instructions: Hold until follow up with Dr Wang Discontinued furosemide [Lasix] 40 mg tablet 40 mg PO BID Qty: 190 1RF Rx Instructions: Take 1 tablet twice daily and can take additional 40mg as needed for edema clonazepam 0.5 mg tablet 0.5 mg PO DAILY Qty: 30 2RF potassium chloride [Klor-Con M20] 20 mEq tablet,ER particles/crystals 20 meq PO BID Qty: 180 3RF lisinopril 40 mg tablet 40 mg PO QAM Qty: 90 3RF tramadol 50 mg tablet 50 mg PO Q8H PRN (Reason: pain) Qty: 30 0RF Rx Instructions: moderate or severe pain methylprednisolone [Medrol (Paul)] 4 mg tablets,dose pack See Rx Instructions .Route .COMPLEX Qty: 21 0RF Rx Instructions: use as directed ; Discharge Orders: Discharge Order (Routine); Ordered 05/15/22 Ordered By: Ishan Rodriguez/Other Patient Handouts: Low Potassium Diet Dc Admission Data Admit Date/Time: 05/09/22 20:44 Attending Provider: Ishan Nassar Admit Provider: Eric Mooney Primary Care Provider: Adrian Silveira Other Providers: [place] ; Eric Mooney ; Katina Batista ; Sea Marx ; Sekou Wang Other Interventions: Discharge Summary Assessment (RN) Last Done: 05/15/22 13:11 Coding Level of Care Code D/C DAY MANAGEMENT >30 MINS Diagnoses Abscess L02.91 Acute on chronic kidney failure N17.9; N18.9 Hyponatremia E87.1 Leukocytosis D72.829 Hyperkalemia E87.5 Elevated troponin R77.8 Hyperglycemia R73.9 Diabetes mellitus E11.9 Frequent falls R29.6 Permanent atrial fibrillation I48.2 Ischemic cardiomyopathy I25.5 Chronic systolic congestive heart failure I50.22 Depression F32.9 Thrombocytopenia D69.6 Home Health Attestation I certify that this patient is under my care and that I, or a physicians assistant refinery operator working with me, had a face to-face encounter that meets the [facility] [id number] encounter requirements with this patient. The encounter with the patient was in whole, or in part, for the following medical condition, which is the primary reason for home health care (list medical condition): Hyponatremia I certify that, based on my findings, the following services are medically necessary home health services: My clinical findings support the need for the above services because: OT Assess ADL Status and Restore Function w ADLs PT Assessment for Endurance / Balance / Strength PT Eval for Safety and Mobility PT Eval for Safety, Gait Training, Assistive Devices PT Gait and Balance Training, Strengthening and Safety Skilled Nsg Assessment Further, I certify that my clinical findings support that this patient is homebound (i.e. absences from home require considerable and taxing effort and are for medical reasons or hinduism services or infrequently or of short duration when for other reasons) because: Poor Endurance; SOB Minimal Exertion Certification for Home Health Services: Based on the above findings, I certify that this patient is confined to the home and needs intermittent half-way care, physical therapy and/or speech therapy or continues to need occupational therapy. The patient is under my care, and I have initiated the establishment of the plan of care. This patient will be followed by a physician who will periodically review the plan of care.
--- NOTE | 2022-05-24 13:33 | Coding Query ---
To promote full compliance with coding requirements relating to patient care, provider participation is requested in all cases of nut processing supervisor uncertainty. Please assist us with the question(s) below: Coding Question(s): The diagnosis below was documented in the H&P then subsequently fell off all further documentation. Please indicate if it is still a possible diagnosis or ruled out. Physician's Response(s): NSTEMI ( ) Diagnosed and POA ( ) Diagnosed and not POA (x ) Ruled out ( ) Other (please specify) MTDD
== END 2022-05-15 14:11 | disposition home health service (06) | DRG 683 ==
LOC: ED 16:14 → SUATTDRO 20:44 → 2S 20:44